=== PATIENT | female | born 1930 | race Caucasian/White ===

== ENCOUNTER 2016-10-21 18:10 | Emergency (ER) | payer MEDICARE, BC ==
[2016-10-21] MEDS ORDERED: methylPREDNISolone SOD SUCCI 125 MG/2 ML VIAL IM ONE (18:54)
[2016-10-21] MEDS ORDERED: diphenhydrAMINE 50 MG CAP PO STA (18:55)
[2016-10-21] MEDS ORDERED: FAMOTIDINE 20 MG TAB PO STA (18:55)
--- NOTE | 2016-10-21 19:00 | ED ---
Allergic Reaction HPI - General Chief complaint: Allergic Reaction Stated complaint: hives,itching Time Seen by Provider: 10/21/16 18:40 Source: patient, RN notes reviewed Mode of arrival: wheelchair Limitations: no limitations - History of Present Illness Initial Comments: Patient is an 86-year-old female presents to the emergency room evaluation of rash. Patient states around noon today she noticed hives rash over bilateral arms, abdomen and lower back. Patient states she is very uncomfortable from itching. Patient states she put topical Benadryl the area with no relief of symptoms. Patient denies any new medications. Patient is states she had her left upper tooth pulled yesterday. Patient states she's had this procedure done before. Patient denies having any ALLERGIC reactions before with medication she was given. Patient denies any new foods. Patient denies any new lotions, body washes, shampoos, body sprays. Patient denies any new plants or pets in the household. Patient denies any shortness of breath. Patient denies chest pain. Patient denies fevers or chills. Patient denies headache or dizziness. - Related Data Previous Rx's Medication Instructions Recorded Famotidine [Pepcid] 20 mg PO DAILY #4 tablet 10/21/16 predniSONE 50 mg PO DAILY #4 tab 10/21/16 Allergies Allergy/AdvReac Type Severity Reaction Status Date / Time Penicillins Allergy Unknown Verified 10/21/16 18:55 Review of Systems ROS Statement: Those systems with pertinent positive or pertinent negative responses have been documented in the HPI. ROS Other: All systems not noted in ROS Statement are negative. Past Medical History Past Medical History: Heart Failure Additional Past Medical History / Comment(s): blood clot filter History of Any Multi-Drug Resistant Organisms: None Reported Past Surgical History: Appendectomy, Cholecystectomy, Hysterectomy Additional Past Surgical History / Comment(s): carpal tunnel Past Psychological History: No Psychological Hx Reported Smoking Status: Never smoker Past Alcohol Use History: None Reported Past Drug Use History: None Reported General Exam - General Exam Comments Initial Comments: Sitting in exam room, no distress. Limitations: no limitations General appearance: alert, in no apparent distress Head exam: Present: atraumatic, normocephalic, normal inspection Eye exam: Present: normal appearance ENT exam: Present: normal exam Neck exam: Present: normal inspection Respiratory exam: Present: normal lung sounds bilaterally. Absent: respiratory distress Cardiovascular Exam: Present: regular rate, normal rhythm, normal heart sounds Extremities exam: Present: normal inspection Back exam: Present: normal inspection Neurological exam: Present: alert, oriented X3, CN II-XII intact, normal gait Psychiatric exam: Present: normal affect, normal mood Skin exam: Present: urticaria (Multiple urticaria over bilateral arms, abdomen and lower back) Course Vital Signs 10/21/16 10/21/16 18:33 20:31 Temperature 97.4 F L 98.0 F Pulse Rate 63 68 Respiratory 20 18 Rate Blood Pressure 104/53 155/69 O2 Sat by Pulse 96 95 Oximetry Medical Decision Making - Medical Decision Making patient is a 86-year-old female presents to the emergency room for evaluation of hives rash. Patient given Solu-Medrol, Benadryl and Pepcid and states that she is beginning to feel better. Will send patient home with prednisone and Pepcid and advised her take Benadryl as needed. Patient states she understands everything that was discussed with her. Return parameters discussed. Case discussed with Dr. Simmons. Disposition Clinical Impression: Urticaria Disposition: HOME SELF-CARE Condition: Good Instructions: Urticaria (ED) Additional Instructions: Begin taking prednisone and Pepcid tomorrow. Take Benadryl every 4-6 hours as needed. Please follow up with primary care provider in 1-2 days. If any new symptom arises or symptoms worsen, return to ER as soon as possible. Prescriptions: Famotidine [Pepcid] 20 mg PO DAILY #4 tablet predniSONE 50 mg PO DAILY #4 tab Referrals: Mary Ramos MD [Primary Care Provider] - 1-2 days Time of Disposition: 20:24
[2016-10-21 20:31] VITALS: BP 155/69; PULSE 68; RESP 18; TEMP 98
== END 2016-10-21 20:31 | disposition home or self-care (01) ==
LOC: EC 18:10
DX: L50.9 Urticaria, unspecified (principal); Z88.0 Allergy status to penicillin
CPT/HCPCS: 99283; 96372; J2930

== ENCOUNTER 2016-10-22 04:19 | Emergency (ER) | payer MEDICARE, BC ==
[2016-10-22 04:26] VITALS: RESP 18
[2016-10-22] MEDS ORDERED: methylPREDNISolone SOD SUCCI 125 MG/2 ML VIAL IM ONE (04:55)
[2016-10-22] MEDS ORDERED: LORATADINE 10 MG TAB PO STA (04:55)
--- NOTE | 2016-10-22 04:59 | ED ---
Skin/Abscess/FB HPI - General Chief complaint: Skin/Abscess/Foreign Body Stated complaint: Hives/Skin Rash Time Seen by Provider: 10/22/16 04:29 Source: patient Mode of arrival: wheelchair Limitations: no limitations - History of Present Illness Initial comments: She was seen earlier in ER for an ALLERGIC reaction she had a hives and it was very itchy she was giving her prednisone and Pepcid prescription of pharmacy closed and she was unable to get her prescription filled and now she feels hives are back not as bad as they were before but she felt that there were quite itchy. She denies any shortness of breath she denies any swelling of the tongue or tightening of the throat. - Related Data Previous Rx's Medication Instructions Recorded Famotidine [Pepcid] 20 mg PO DAILY #4 tablet 10/21/16 predniSONE 50 mg PO DAILY #4 tab 10/21/16 Allergies Allergy/AdvReac Type Severity Reaction Status Date / Time Penicillins Allergy Unknown Verified 10/22/16 04:26 Review of Systems ROS Statement: Those systems with pertinent positive or pertinent negative responses have been documented in the HPI. ROS Other: All systems not noted in ROS Statement are negative. Past Medical History Past Medical History: Heart Failure Additional Past Medical History / Comment(s): blood clot filter History of Any Multi-Drug Resistant Organisms: None Reported Past Surgical History: Appendectomy, Cholecystectomy, Hysterectomy Additional Past Surgical History / Comment(s): carpal tunnel Past Psychological History: No Psychological Hx Reported Smoking Status: Never smoker Past Alcohol Use History: None Reported Past Drug Use History: None Reported General Exam - General Exam Comments Initial Comments: General: The patient is awake and alert, in no distress, and does not appear acutely ill. GCS is 15 Skin: Skin is warm and dry and no rashes or lesions are noted. Some scattered hives on the right kidney some in the upper back some on the left upper extremity Eye: Pupils are equal, round and reactive to light, extra-ocular movements are intact; there is normal conjunctiva bilaterally. Ears, nose, mouth and throat: There are moist mucous membranes and no oral lesions. Neck: The neck is supple, there is no tenderness Cardiovascular: There is a regular rate and rhythm. No murmur, rub or gallop is appreciated. Respiratory: To auscultation bilateral, no wheezing no rhonchi no distress respiratory shaw noticed Gastrointestinal: Soft, non-distended, non-tender abdomen without masses or organomegaly noted. There is no rebound or guarding present. Bowel sounds are unremarkable. Back: There is no tenderness to palpation in the midline. There is no obvious deformity. Musculoskeletal: Normal ROM, no tenderness, There is no pedal edema. There is no calf tenderness or swelling. No cords were appreciated. Neurological: CN II-XII intact, Cranial nerves III through XII are intact. There are no obvious motor or sensory deficits. Coordination appears grossly intact. Speech is normal. Psychiatric: Cooperative, appropriate mood & affect, normal judgment. Limitations: no limitations Course Vital Signs 10/22/16 04:23 Temperature 96.9 F L Pulse Rate 62 Respiratory 18 Rate Blood Pressure 122/58 O2 Sat by Pulse 94 L Oximetry - Reevaluation(s) Reevaluation #1: 10/22/16 04:58 She be given a one shot of Solu-Medrol 125 intramuscular now and Claritin 10 mg by mouth she has a prescription for Pepcid 20 mg twice daily as well as prednisone 50 mg 1 tablet daily for next 5 days, she was educated about avoiding the water excess of soap for use in the body wash and return to the ER if she has the shortness of breath or tongue swelling or lip swelling Disposition Clinical Impression: Allergic reaction Disposition: HOME SELF-CARE Condition: Fair Instructions: Allergies (ED) Referrals: Mary Ramos MD [Primary Care Provider] - 1-2 days
[2016-10-22 05:23] VITALS: BP 133/71; PULSE 69; TEMP 98
== END 2016-10-22 05:23 | disposition home or self-care (01) ==
LOC: EC 04:19
DX: T78.40XA Allergy, unspecified, initial encounter (principal); Z88.0 Allergy status to penicillin
CPT/HCPCS: 99283; 96372; J2930

== ENCOUNTER → 2016-11-05 | Outpatient (CLI) | payer MEDICARE, BC ==
[2016-11-05 09:35] LABS: Anion Gap 10 mmol/L; Blood Urea Nitrogen 31 mg/dL (7-17); Calcium 8.8 mg/dL (8.4-10.2); Carbon Dioxide 26 mmol/L (22-30); Chloride 108 mmol/L (98-107); Glucose 107 mg/dL (74-99); Non-African American GFR(MDRD) 57 (>60 ml/min/1.73 sqM); Potassium 3.7 mmol/L (3.5-5.1); Sodium 144 mmol/L (137-145)
[2016-11-05 12:56] LABS: Hemoglobin A1C 6.7 % (4.2-6.1)
== END | disposition home or self-care (01) ==
LOC: LABWHC1 08:43
PROVIDERS: ATTEND Internal Medicine
DX: R73.9 Hyperglycemia, unspecified (principal)
CPT/HCPCS: 36415; 80048; 83036

== ENCOUNTER 2016-11-16 12:04 | Emergency (ER) | payer MEDICARE, BC ==
--- NOTE | 2016-11-16 13:10 | ED ---
Extremity Problem HPI - General Chief complaint: Extremity Problem,Nontraumatic Stated complaint: Swollen Legs and Feet Time Seen by Provider: 11/16/16 12:21 Source: patient, family Mode of arrival: wheelchair Limitations: no limitations - History of Present Illness Initial comments: This is an 86-year-old female to history of DVT and CHF who presents emergency department for worsening lower extremity swelling for the last week. She states that she was seen here approximately 3 or 4 weeks ago for a rash. She was told that it was hives and was placed on steroids. She states that she's been on these until a week ago when she stopped taking them. She states that since then she's been noticing more swelling in her lower extremities. It seems to get worse at nighttime and better throughout the day as she is moving around. She did see her doctor recently who stated that he was not concerned. The patient is on Coumadin and has been taking her medications. She states that she also does have some shortness of breath with exertion however this is chronic. No chest pain or palpitations. No lightheadedness. No other complaints. - Related Data Home Medications Medication Instructions Recorded Confirmed Diazepam [Valium] 5 mg PO BID 11/16/16 11/16/16 Levothyroxine Sodium [Synthroid] 137 mcg PO DAILY 11/16/16 11/16/16 Potassium Chloride 8 meq PO DAILY 11/16/16 11/16/16 Ranitidine HCl [Zantac] 150 mg PO BID 11/16/16 11/16/16 Triamterene/Hydrochlorothiazid 1 tab PO DAILY 11/16/16 11/16/16 [Triamterene-Hctz 37.5-25 mg Tb] Warfarin [Coumadin] 3 mg PO DAILY 11/16/16 11/16/16 Allergies Allergy/AdvReac Type Severity Reaction Status Date / Time Penicillins Allergy Unknown Verified 11/16/16 12:27 Review of Systems ROS Statement: Those systems with pertinent positive or pertinent negative responses have been documented in the HPI. ROS Other: All systems not noted in ROS Statement are negative. Past Medical History Past Medical History: Heart Failure, Thyroid Disorder Additional Past Medical History / Comment(s): blood clot filter History of Any Multi-Drug Resistant Organisms: None Reported Past Surgical History: Appendectomy, Cholecystectomy, Hysterectomy Additional Past Surgical History / Comment(s): carpal tunnel Past Psychological History: No Psychological Hx Reported Smoking Status: Never smoker Past Alcohol Use History: None Reported Past Drug Use History: None Reported General Exam - General Exam Comments Initial Comments: Constitutional: Awake alert Appears comfortable Head: Normocephalic atraumatic Eyes: no conjunctival injection No scleral icterus EOMI Neck: No JVD Supple Heart: Regular rate rhythm normal S1-S2 no murmurs Lungs: Clear to auscultation bilaterally No wheezing No rales Abdomen: Soft nondistended nontender Extremities: Bilateral lower extremity edema up to the knee right greater than left DP pulses intact Radial pulses intact Neuro: A&Ox3 No focal neurologic deficits Psych: Appropriate mood and affect Limitations: no limitations Course Vital Signs 11/16/16 11/16/16 11/16/16 12:08 13:11 14:00 Temperature 97.1 F L Pulse Rate 80 57 L 55 L Respiratory 20 18 18 Rate Blood Pressure 141/71 123/60 120/56 O2 Sat by Pulse 97 97 95 Oximetry 11/16/16 15:00 Temperature Pulse Rate 60 Respiratory 18 Rate Blood Pressure 127/61 O2 Sat by Pulse 96 Oximetry - Reevaluation(s) Reevaluation #1: 11/16/16 14:44 EKG showing a normal sinus rhythm with a rate of 80. There is evidence for a left bundle-branch block. No abnormal ST segment changes or T-wave inversions. QTC is 530 area other intervals are normal ectopy. Medical Decision Making - Medical Decision Making This is an 86-year-old female presents emergency department for bilateral lower extremity swelling. Dopplers were negative for DVT. There is no evidence for acute renal failure or CHF exacerbation. The patient was instructed to get compression stockings and follow up with her doctor for further evaluation. She can return if she has worsening or changing symptoms. All questions were answered. - Lab Data Result diagrams: 11/16/16 12:51 11/16/16 12:51 Lab Results 11/16/16 11/16/16 11/16/16 Range/Units 12:51 12:51 12:51 WBC 8.6 (3.8-10.6) k/uL RBC 5.03 (3.80-5.40) m/uL Hgb 14.7 (11.4-16.0) gm/dL Hct 44.1 (34.0-46.0) % MCV 87.7 (80.0-100.0) fL MCH 29.2 (25.0-35.0) pg MCHC 33.3 (31.0-37.0) g/dL RDW 15.7 H (11.5-15.5) % Plt Count 259 (150-450) k/uL Neutrophils % 67 % Lymphocytes % 19 % Monocytes % 5 % Eosinophils % 7 % Basophils % 1 % Neutrophils # 5.8 (1.3-7.7) k/uL Lymphocytes # 1.6 (1.0-4.8) k/uL Monocytes # 0.4 (0-1.0) k/uL Eosinophils # 0.6 (0-0.7) k/uL Basophils # 0.1 (0-0.2) k/uL PT 32.6 H (9.0-12.0) sec INR 3.4 (<1.1) Sodium 142 (137-145) mmol/L Potassium 4.5 (3.5-5.1) mmol/L Chloride 102 (98-107) mmol/L Carbon Dioxide 28 (22-30) mmol/L Anion Gap 12 mmol/L BUN 21 H (7-17) mg/dL Creatinine 1.27 H (0.52-1.04) mg/dL Est GFR (MDRD) Af Amer 48 (>60 ml/min/1.73 sqM) Est GFR (MDRD) Non-Af 40 (>60 ml/min/1.73 sqM) Glucose 98 (74-99) mg/dL Calcium 9.3 (8.4-10.2) mg/dL NT-Pro-B Natriuret Pep pg/mL 11/16/16 Range/Units 12:51 WBC (3.8-10.6) k/uL RBC (3.80-5.40) m/uL Hgb (11.4-16.0) gm/dL Hct (34.0-46.0) % MCV (80.0-100.0) fL MCH (25.0-35.0) pg MCHC (31.0-37.0) g/dL RDW (11.5-15.5) % Plt Count (150-450) k/uL Neutrophils % % Lymphocytes % % Monocytes % % Eosinophils % % Basophils % % Neutrophils # (1.3-7.7) k/uL Lymphocytes # (1.0-4.8) k/uL Monocytes # (0-1.0) k/uL Eosinophils # (0-0.7) k/uL Basophils # (0-0.2) k/uL PT (9.0-12.0) sec INR (<1.1) Sodium (137-145) mmol/L Potassium (3.5-5.1) mmol/L Chloride (98-107) mmol/L Carbon Dioxide (22-30) mmol/L Anion Gap mmol/L BUN (7-17) mg/dL Creatinine (0.52-1.04) mg/dL Est GFR (MDRD) Af Amer (>60 ml/min/1.73 sqM) Est GFR (MDRD) Non-Af (>60 ml/min/1.73 sqM) Glucose (74-99) mg/dL Calcium (8.4-10.2) mg/dL NT-Pro-B Natriuret Pep 74 pg/mL Disposition Clinical Impression: Dependent edema Disposition: HOME SELF-CARE Condition: Stable Instructions: Leg Edema (ED) Additional Instructions: Please apple picker compression stockings from her pharmacy to follow-up with your doctor in the next week. Referrals: Rj Vo MD [Primary Care Provider] - 1-2 days
[2016-11-16 13:32] LABS: Basophils # (A) 0.1 k/uL (0-0.2); Basophils % (A) 1 %; CHCM 33.3; Eosinophils # (A) 0.6 k/uL (0-0.7); Eosinophils % (A) 7 %; HCT 44.1 % (34.0-46.0); HDW 2.84; HGB 14.7 gm/dL (11.4-16.0); Luc # (Auto) 0.15; Luc % (Auto) 2; Lymphocytes # (A) 1.6 k/uL (1.0-4.8); Lymphocytes % (A) 19 %; MCH 29.2 pg (25.0-35.0); MCHC 33.3 g/dL (31.0-37.0); MCV 87.7 fL (80.0-100.0); Mean Platelet Volume 7.2; Monocytes # (A) 0.4 k/uL (0-1.0); Monocytes % (A) 5 %; Neutrophils # (A) 5.8 k/uL (1.3-7.7); Neutrophils % (A) 67 %; RBC 5.03 m/uL (3.80-5.40); RDW 15.7 % (11.5-15.5); WBC 8.6 k/uL (3.8-10.6); WBC (Perox) 8.19
[2016-11-16 13:36] VITALS: RESP 18
[2016-11-16 13:38] LABS: INR 3.4 (<1.1); Prothrombin Time 32.6 sec (9.0-12.0)
[2016-11-16 13:51] LABS: Calcium 9.3 mg/dL (8.4-10.2); Potassium 4.5 mmol/L (3.5-5.1)
--- NOTE | 2016-11-16 14:44 | US ---
EXAMINATION TYPE: US venous doppler duplex LE DATE OF EXAM: 11/16/2016 12:48 PM COMPARISON: US 2012 CLINICAL HISTORY: A 6-year-old female Pain, Bilateral leg swelling. 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 SIDE PERFORMED: Bilateral TECHNIQUE: The lower extremity deep venous system is examined utilizing real time linear array sonog paris with graded compression, doppler sonography and color-flow sonography. FINDINGS: VESSELS IMAGED: External Iliac Vein (EIV) Common Femoral Vein Deep Femoral Vein Greater Saphenous Vein * Femoral Vein Popliteal Vein Small Saphenous Vein * (* superficial vessels) Right Leg: Negative for DVT Left Leg: Negative for DVT IMPRESSION: No evidence for DVT within the bilateral lower extremities imaged from the groin to the knees.
--- NOTE | 2016-11-16 15:05 | XR ---
EXAMINATION TYPE: XR chest 2V DATE OF EXAM: 11/16/2016 COMPARISON: None HISTORY: 86-year-old female with lower leg edema and pain TECHNIQUE: AP and lateral views FINDINGS: The heart is moderately to mildly enlarged. Mild elongation of the thoracic aorta. Pulmonary vasculat ure and interstitium appears prominent. No consolidation or pleural effusion. IMPRESSION: Correlate for mild CHF. No brittany pulmonary edema.
[2016-11-16 15:21] VITALS: BP 139/66; PULSE 72; TEMP 97
== END 2016-11-16 15:33 | disposition home or self-care (01) ==
LOC: EC 12:04
DX: R60.0 Localized edema (principal); I50.9 Heart failure, unspecified; E07.9 Disorder of thyroid, unspecified; Z86.718 Personal history of other venous thrombosis and embolism; Z79.01 Long term (current) use of anticoagulants; Z79.899 Other long term (current) drug therapy; Z88.0 Allergy status to penicillin
CPT/HCPCS: 36415; 71020; 80048; 83880; 85025; 85610; 93005; 93970; 99284

== ENCOUNTER 2016-11-23 14:02 | Inpatient (IN) | payer MEDICARE, BC ==
--- NOTE | 2016-11-23 16:46 | XR ---
EXAMINATION TYPE: XR chest 2V DATE OF EXAM: 11/23/2016 COMPARISON: Chest x-ray from one week ago. HISTORY: Dyspnea and edema. TECHNIQUE: Frontal and lateral views of the chest are obtained. FINDINGS: There is no focal air space opacity, pleural effusion, or pneumothorax seen. The cardiac silhouette size is stable and mildly enlarged with perhaps mild central vascular congestion. The os seous structures are intact. IMPRESSION: Cardiomegaly with perhaps mild central vascular congestion redemonstrated. No significan t change from prior study. Correlate for mild CHF.
[2016-11-23 17:03] LABS: Basophils # (A) 0.1 k/uL (0-0.2); Basophils % (A) 1 %; CH 28.6; CHCM 32.7; Eosinophils # (A) 0.4 k/uL (0-0.7); Eosinophils % (A) 5 %; HCT 47.8 % (34.0-46.0); HDW 3.06; HGB 15.6 gm/dL (11.4-16.0); Luc # (Auto) 0.14; Luc % (Auto) 2; Lymphocytes # (A) 1.4 k/uL (1.0-4.8); Lymphocytes % (A) 15 %; MCH 28.7 pg (25.0-35.0); MCHC 32.7 g/dL (31.0-37.0); MCV 87.8 fL (80.0-100.0); Mean Platelet Volume 7.3; Monocytes # (A) 0.4 k/uL (0-1.0); Monocytes % (A) 4 %; Neutrophils % (A) 74 %; RBC 5.44 m/uL (3.80-5.40); RDW 15.7 % (11.5-15.5); WBC 9.6 k/uL (3.8-10.6); WBC (Perox) 10.07
[2016-11-23 17:18] LABS: INR 4.9 (<1.1); Partial Thromboplastin Time 48.8 sec (22.0-30.0); Prothrombin Time 48.7 sec (9.0-12.0)
[2016-11-23 17:19] LABS: Calcium 8.9 mg/dL (8.4-10.2); Potassium 3.2 mmol/L (3.5-5.1); Total Bilirubin 0.7 mg/dL (0.2-1.3)
[2016-11-23] MEDS ORDERED: POTASSIUM CHLORIDE ER 20 MEQ TAB.ER PO STA ×2 (17:22→20:21)
[2016-11-23 17:26] LABS: Creatine Kinase 56 U/L (30-135)
[2016-11-23 17:39] LABS: Creatine Kinase MB 0.7 ng/mL (0.0-2.4); Troponin I <0.012 ng/mL (0.000-0.034)
[2016-11-23] MEDS ORDERED: ASPIRIN 325 MG TAB PO STA (18:05)
[2016-11-23] MEDS ORDERED: FUROSEMIDE 10 MG/ML 2 ML VIAL IV STA (18:05)
[2016-11-23] MEDS ORDERED: NALOXONE 0.4 MG/ML 1 ML VIAL IV PRN (18:06)
[2016-11-23] MEDS ORDERED: ACETAMINOPHEN TAB 325 MG TAB PO PRN (18:13)
[2016-11-23] MEDS ORDERED: ONDANSETRON 4 MG/2 ML VIAL IVP PRN (18:13)
--- NOTE | 2016-11-23 18:33 | ED ---
General Adult HPI - General Chief complaint: Shortness of Breath Stated complaint: Feet/Legs swollen Time Seen by Provider: 11/23/16 15:13 Source: patient, family, RN notes reviewed Mode of arrival: wheelchair Limitations: no limitations - History of Present Illness Initial comments: Sexual female with past medical history of CHF, CAD presenting with 2 months of worsening shortness of breath. Patient states that last night she had worsening dyspnea. She denies cough denies fever. Patient had an episode of chest pain which is resolved. Chest pain was described as a heaviness. Patient is currently on a diuretic, which she states is now Lasix. Patient is also taking Coumadin. Denies nausea vomiting diarrhea. Denies abdominal pain. - Related Data Home Medications Medication Instructions Recorded Confirmed Diazepam [Valium] 5 mg PO BID PRN 11/16/16 11/23/16 Levothyroxine Sodium [Synthroid] 137 mcg PO DAILY 11/16/16 11/23/16 Potassium Chloride 8 meq PO BID 11/16/16 11/23/16 Ranitidine HCl [Zantac] 150 mg PO BID 11/16/16 11/23/16 Warfarin [Coumadin] 3 mg PO DAILY 11/16/16 11/23/16 Cholecalciferol [Vitamin D3] 1,000 unit PO DAILY 11/23/16 11/23/16 Montelukast [Singulair] 10 mg PO HS 11/23/16 11/23/16 Triamterene-Hctz 37.5-25Mg 1 cap PO DAILY 11/23/16 11/23/16 [Dyazide 37.5-25 Capsule] Allergies Allergy/AdvReac Type Severity Reaction Status Date / Time nitroglycerin AdvReac Unknown Verified 11/23/16 15:48 [From Nitrostat] Penicillins AdvReac Nausea & Verified 11/23/16 15:48 Vomiting Review of Systems ROS Statement: Those systems with pertinent positive or pertinent negative responses have been documented in the HPI. ROS Other: All systems not noted in ROS Statement are negative. Past Medical History Past Medical History: Heart Failure, Thyroid Disorder Additional Past Medical History / Comment(s): blood clot filter History of Any Multi-Drug Resistant Organisms: None Reported Past Surgical History: Appendectomy, Cholecystectomy, Hysterectomy Additional Past Surgical History / Comment(s): carpal tunnel Past Psychological History: No Psychological Hx Reported Smoking Status: Never smoker Past Alcohol Use History: None Reported Past Drug Use History: None Reported General Exam Limitations: no limitations General appearance: alert, in no apparent distress Head exam: Present: atraumatic, normocephalic Eye exam: Present: normal appearance, PERRL ENT exam: Present: normal exam Neck exam: Present: normal inspection Respiratory exam: Present: rales. Absent: respiratory distress Cardiovascular Exam: Present: regular rate, normal rhythm GI/Abdominal exam: Present: soft. Absent: distended, tenderness Extremities exam: Present: pedal edema Neurological exam: Present: alert, oriented X3 Psychiatric exam: Present: normal affect, normal mood Skin exam: Present: warm, dry Course Vital Signs 11/23/16 11/23/16 11/23/16 14:35 14:57 16:43 Temperature 98.3 F Pulse Rate 96 90 83 Respiratory 24 22 20 Rate Blood Pressure 160/77 154/78 125/63 O2 Sat by Pulse 97 95 96 Oximetry 11/23/16 17:58 Temperature Pulse Rate 83 Respiratory 18 Rate Blood Pressure 124/67 O2 Sat by Pulse 98 Oximetry EKG Findings - EKG Comments: EKG Findings:: EKG shows normal sinus rhythm with an incomplete left bundle branch block, ventricular rate 92, MT interval is 160, QTC 42, QRS duration 116 , there is no ST segment elevation or depression, no T-wave abnormalities. No signs of ischemia. Medical Decision Making - Medical Decision Making 86 yo female presenting with worsening dyspnea over 2 months. Patient had an episode of chest pain which was resolved at the time of evaluation. Patient is found to have pulmonary edema on chest x-ray. Exam consistent with worsening heart failure, there is bilateral 1+ pedal edema. Patient has bilateral Rales. Patient will be admitted for acute congestive heart failure exacerbation. - Lab Data Result diagrams: 11/23/16 16:43 11/23/16 16:43 Lab Results 11/23/16 11/23/16 11/23/16 Range/Units 16:43 16:43 16:43 WBC 9.6 (3.8-10.6) k/uL RBC 5.44 H (3.80-5.40) m/uL Hgb 15.6 (11.4-16.0) gm/dL Hct 47.8 H (34.0-46.0) % MCV 87.8 (80.0-100.0) fL MCH 28.7 (25.0-35.0) pg MCHC 32.7 (31.0-37.0) g/dL RDW 15.7 H (11.5-15.5) % Plt Count 276 (150-450) k/uL Neutrophils % 74 % Lymphocytes % 15 % Monocytes % 4 % Eosinophils % 5 % Basophils % 1 % Neutrophils # 7.0 (1.3-7.7) k/uL Lymphocytes # 1.4 (1.0-4.8) k/uL Monocytes # 0.4 (0-1.0) k/uL Eosinophils # 0.4 (0-0.7) k/uL Basophils # 0.1 (0-0.2) k/uL PT 48.7 H (9.0-12.0) sec INR 4.9 (<1.1) APTT 48.8 H (22.0-30.0) sec Sodium 140 (137-145) mmol/L Potassium 3.2 L (3.5-5.1) mmol/L Chloride 100 (98-107) mmol/L Carbon Dioxide 28 (22-30) mmol/L Anion Gap 12 mmol/L BUN 22 H (7-17) mg/dL Creatinine 1.11 H (0.52-1.04) mg/dL Est GFR (MDRD) Af Amer 56 (>60 ml/min/1.73 sqM) Est GFR (MDRD) Non-Af 47 (>60 ml/min/1.73 sqM) Glucose 110 H (74-99) mg/dL Plasma Lactic Acid Stiven (0.7-2.0) mmol/L Calcium 8.9 (8.4-10.2) mg/dL Total Bilirubin 0.7 (0.2-1.3) mg/dL AST 25 (14-36) U/L ALT 28 (9-52) U/L Alkaline Phosphatase 102 (38-126) U/L Total Creatine Kinase (30-135) U/L CK-MB (CK-2) (0.0-2.4) ng/mL CK-MB (CK-2) Rel Index Troponin I (0.000-0.034) ng/mL NT-Pro-B Natriuret Pep pg/mL Total Protein 7.0 (6.3-8.2) g/dL Albumin 4.1 (3.5-5.0) g/dL 11/23/16 11/23/16 11/23/16 Range/Units 16:43 16:43 16:43 WBC (3.8-10.6) k/uL RBC (3.80-5.40) m/uL Hgb (11.4-16.0) gm/dL Hct (34.0-46.0) % MCV (80.0-100.0) fL MCH (25.0-35.0) pg MCHC (31.0-37.0) g/dL RDW (11.5-15.5) % Plt Count (150-450) k/uL Neutrophils % % Lymphocytes % % Monocytes % % Eosinophils % % Basophils % % Neutrophils # (1.3-7.7) k/uL Lymphocytes # (1.0-4.8) k/uL Monocytes # (0-1.0) k/uL Eosinophils # (0-0.7) k/uL Basophils # (0-0.2) k/uL PT (9.0-12.0) sec INR (<1.1) APTT (22.0-30.0) sec Sodium (137-145) mmol/L Potassium (3.5-5.1) mmol/L Chloride (98-107) mmol/L Carbon Dioxide (22-30) mmol/L Anion Gap mmol/L BUN (7-17) mg/dL Creatinine (0.52-1.04) mg/dL Est GFR (MDRD) Af Amer (>60 ml/min/1.73 sqM) Est GFR (MDRD) Non-Af (>60 ml/min/1.73 sqM) Glucose (74-99) mg/dL Plasma Lactic Acid Stiven 1.7 (0.7-2.0) mmol/L Calcium (8.4-10.2) mg/dL Total Bilirubin (0.2-1.3) mg/dL AST (14-36) U/L ALT (9-52) U/L Alkaline Phosphatase (38-126) U/L Total Creatine Kinase 56 (30-135) U/L CK-MB (CK-2) 0.7 (0.0-2.4) ng/mL CK-MB (CK-2) Rel Index 1.3 Troponin I <0.012 (0.000-0.034) ng/mL NT-Pro-B Natriuret Pep 76 pg/mL Total Protein (6.3-8.2) g/dL Albumin (3.5-5.0) g/dL Disposition Clinical Impression: Congestive heart failure Disposition: ADMITTED IP TO THIS [facility] Condition: Stable Referrals: Rj Vo MD [Primary Care Provider] - 1-2 days Decision to Admit Reason: Admit from EC Decision Date: 11/23/16 Decision Time: 18:35
[2016-11-23] MEDS ORDERED: DIAZEPAM 5 MG TAB PO PRN (20:01)
[2016-11-23] MEDS ORDERED: Potassium Replacement Protocol 1 EACH MISC MISCELLANE PRN (20:21)
[2016-11-23] MEDS ORDERED: FUROSEMIDE 10 MG/ML 4 ML VIAL IV STA (20:22)
--- NOTE | 2016-11-23 20:59 | P.HPIM ---
<Tri Vazquez A - Last Filed: 11/23/16 20:39> History of Present Illness H&P Date: 11/23/16 Chief Complaint: Increasing shortness of breath This is a very pleasant 86-year-old female with a past medical history of CHF, CAD who presented to the emergency department with 2 months of worsening shortness of breath. Patient states the worst of it was last night with worsening dyspnea. Patient states she is unable to lie flat in the bed, sleeps sitting up in a chair. Denies cough and fever. States she had an episode of chest pain which is now resolved, chest pain described as heaviness. Patient's history is significant for DVT with a placement of [place] filter, unknown date. Patient also is chronically on Coumadin for said DVTs . Review of Systems GEN.: [None] EYES: [None] HEENT: [None] NECK: [None] RESPIRATORY: [Shortness of breath] CARDIOVASCULAR: [Chest heaviness, edema to bilateral feet and legs] GASTROINTESTINAL: [Occasional bleeding from the rectum] GENITOURINARY: [None] MUSCULOSKELETAL: [] LYMPHATICS: [None] HEMATOLOGICAL: [None] PSYCHIATRY: [None] NEUROLOGICAL: [Periodic numbness to left side of face and left arm.] Past Medical History Past Medical History: Heart Failure, Thyroid Disorder Additional Past Medical History / Comment(s): blood clot filter History of Any Multi-Drug Resistant Organisms: None Reported Past Surgical History: Appendectomy, Cholecystectomy, Hysterectomy Additional Past Surgical History / Comment(s): carpal tunnel Past Psychological History: No Psychological Hx Reported Smoking Status: Never smoker Past Alcohol Use History: None Reported Past Drug Use History: None Reported Medications and Allergies Home Medications Medication Instructions Recorded Confirmed Type Diazepam [Valium] 5 mg PO BID PRN 11/16/16 11/23/16 History Levothyroxine Sodium [Synthroid] 137 mcg PO DAILY 11/16/16 11/23/16 History Potassium Chloride 8 meq PO BID 11/16/16 11/23/16 History Ranitidine HCl [Zantac] 150 mg PO BID 11/16/16 11/23/16 History Warfarin [Coumadin] 3 mg PO DAILY 11/16/16 11/23/16 History Cholecalciferol [Vitamin D3] 1,000 unit PO DAILY 11/23/16 11/23/16 History Montelukast [Singulair] 10 mg PO HS 11/23/16 11/23/16 History Triamterene-Hctz 37.5-25Mg 1 cap PO DAILY 11/23/16 11/23/16 History [Dyazide 37.5-25 Capsule] Allergies Allergy/AdvReac Type Severity Reaction Status Date / Time nitroglycerin AdvReac Unknown Verified 11/23/16 15:48 [From Nitrostat] Penicillins AdvReac Nausea & Verified 11/23/16 15:48 Vomiting Physical Exam Vitals: Vital Signs Temp Pulse Resp BP Pulse Ox 11/23/16 18:55 96 18 146/71 97 11/23/16 17:58 83 18 124/67 98 11/23/16 16:43 83 20 125/63 96 11/23/16 14:57 90 22 154/78 95 11/23/16 14:35 98.3 F 96 24 160/77 97 Intake and Output 11/23/16 11/23/16 11/23/16 06:59 14:59 22:59 Other: Weight 93.44 kg Patient Weight 11/24/16 06:59 Weight 93.44 kg VITAL SIGNS: [Temperature 98.3, pulse 96, respirations 24, blood pressure 160/77 , oxygen saturation 97% on room air. BMI noted] GENERAL: [Average built, sitting up, mildly anxious]. EYES: [Pupils equal. Conjunctiva yury]l. HEENT: [External appearance of nose and ears normal, oral cavity grossly normal] . NECK: [JVD raised; masses not palpable]. HEART: [First and second heart sounds are normal; moderate pedal and lower extremity edema]. LUNGS:[ Respiratory rate increased; crackles bilaterally]. ABDOMEN: [Soft, nontender, liver spleen not palpable, no masses palpable]. LYMPHATICS: [No lymph nodes palpable in the axilla and neck]. PSYCH: [Alert and oriented x3; mood and affect mildly anxious]l. NEUROLOGICAL: [Cranial nerves grossly intact; no facial asymmetry, power and sensation grossly intact]. Results CBC & Chem 7: 11/23/16 16:43 11/23/16 16:43 Labs: Abnormal Lab Results - Last 24 Hours (Table) 11/23/16 11/23/16 11/23/16 Range/Units 16:43 16:43 16:43 RBC 5.44 H (3.80-5.40) m/uL Hct 47.8 H (34.0-46.0) % RDW 15.7 H (11.5-15.5) % PT 48.7 H (9.0-12.0) sec APTT 48.8 H (22.0-30.0) sec Potassium 3.2 L (3.5-5.1) mmol/L BUN 22 H (7-17) mg/dL Creatinine 1.11 H (0.52-1.04) mg/dL Glucose 110 H (74-99) mg/dL Assessment and Plan Plan: ASSESSMENT: -Acute exacerbation of congestive heart failure -Hypothyroidism -Anxiety otherwise unspecified -History of DVT with [place] filter placement, chronically on Coumadin PLAN: Home medications reordered, cardiology consulted, Lasix received in the emergency department, potassium supplemented. Plan of care discussed with the patient, questions answered. We'll continue to follow closely. FRENCH EDGE OPERATOR statement: Patient was seen and examined by nurse practitioner Tri Vazquez in all elements of the case discussed with attending Dr. Abernathy. <Geoffrey Abernathy - Last Filed: 11/24/16 15:47> Physical Exam Vitals: Vital Signs Temp Pulse Pulse Resp BP BP Pulse Ox 11/24/16 12:00 98.2 F 85 18 132/67 96 11/24/16 08:00 97.9 F 88 18 129/60 94 L 11/24/16 04:00 97.3 F L 71 18 108/60 94 L 11/24/16 00:00 90 18 117/71 96 11/23/16 20:00 97.8 F 93 20 122/79 96 11/23/16 18:55 96 18 146/71 97 11/23/16 17:58 83 18 124/67 98 11/23/16 16:43 83 20 125/63 96 Intake and Output 11/24/16 11/24/16 11/24/16 06:59 14:59 22:59 Intake Total 605 Output Total 600 200 Balance -600 405 Intake: Oral 605 Tube Feeding 0 Blood Product 0 Output: Urine 600 200 Other: Voiding Method Toilet Weight 91.2 kg Results CBC & Chem 7: 11/24/16 04:12 11/24/16 11:32 Labs: Abnormal Lab Results - Last 24 Hours (Table) 11/23/16 11/23/16 11/23/16 Range/Units 16:43 16:43 16:43 RBC 5.44 H (3.80-5.40) m/uL Hct 47.8 H (34.0-46.0) % RDW 15.7 H (11.5-15.5) % PT 48.7 H (9.0-12.0) sec APTT 48.8 H (22.0-30.0) sec Potassium 3.2 L (3.5-5.1) mmol/L BUN 22 H (7-17) mg/dL Creatinine 1.11 H (0.52-1.04) mg/dL Glucose 110 H (74-99) mg/dL 11/24/16 11/24/16 11/24/16 Range/Units 04:12 04:12 04:12 RBC (3.80-5.40) m/uL Hct 46.2 H (34.0-46.0) % RDW 16.0 H (11.5-15.5) % PT 42.3 H (9.0-12.0) sec APTT (22.0-30.0) sec Potassium 3.0 L* (3.5-5.1) mmol/L BUN 24 H (7-17) mg/dL Creatinine 1.20 H (0.52-1.04) mg/dL Glucose 136 H (74-99) mg/dL 11/24/16 Range/Units 11:32 RBC (3.80-5.40) m/uL Hct (34.0-46.0) % RDW (11.5-15.5) % PT (9.0-12.0) sec APTT (22.0-30.0) sec Potassium 3.4 L (3.5-5.1) mmol/L BUN (7-17) mg/dL Creatinine (0.52-1.04) mg/dL Glucose (74-99) mg/dL Assessment and Plan Plan: Attending note. Date of service-11/23/2016 This patient was seen and examined by me 11/23/2016. I reviewed the note of my nurse practitioner, Ms. Vazquez. Discussed with her, additional findings as below. This is a very pleasant 86 year patient was chronic stable medical conditions include congestive heart failure, hypothyroid, [place] filter, rheumatoid arthritis. Patient uses a cane/walker to get up out of the house. Patient been told to drink a lot of water and she drinks thank you water all the time presents with increasing lower extremity edema which she's had most of the time some shortness of breath. Patient sits and sleeps on a chair most of the time. Admitted for the same. Denies any cough and no chest pain. Significant past medical history: Congestive heart failure, hypothyroid, chronic DVT PE, rheumatoid arthritis, K dysfunction. On examination, Temperature 98.3, pulse 96, respiration 24, blood pressure was sitting is 77, pulse of 97% room air JVD not raised, lungs decreased breath sounds, cardiovascular first seconds are normal Lower extremity bilateral edema Investigations: White count 9.6, hemoglobin 15.6, potassium 3.2, BUN/creatinine 22, creatinine 1.11. BNP 76 Chest x-ray: Cardiomegaly, no obvious venous prominence, reviewed by me Assessment: -Acute bilateral lower chronic lower extremity venous insufficiency, secondary to chronic DVT, and excessive fluid intake, doubt congestive heart failure exacerbation. 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 Dom wrap will be useful lower extremity. We'll consult physical therapy. Care was discussed with extremely pleasant lady
[2016-11-23] MEDS: FUROSEMIDE 10 MG/ML 2 ML VIAL IV SCH (21:23)
[2016-11-23] MEDS: POTASSIUM CHLORIDE ER 20 MEQ TAB.ER PO SCH (21:23)
[2016-11-23] MEDS: MONTELUKAST 10 MG TAB PO SCH ×2 (21:24→21:29)
[2016-11-23] MEDS: FAMOTIDINE 20 MG TAB PO SCH ×2 (21:24→21:29)
[2016-11-24 04:41] LABS: Basophils # (A) 0.1 k/uL (0-0.2); Basophils % (A) 1 %; CHCM 33.2; Eosinophils # (A) 0.4 k/uL (0-0.7); Eosinophils % (A) 4 %; HCT 46.2 % (34.0-46.0); HDW 2.99; HGB 15.1 gm/dL (11.4-16.0); Luc # (Auto) 0.16; Luc % (Auto) 2; Lymphocytes # (A) 1.6 k/uL (1.0-4.8); Lymphocytes % (A) 18 %; MCH 28.7 pg (25.0-35.0); MCHC 32.8 g/dL (31.0-37.0); MCV 87.7 fL (80.0-100.0); Mean Platelet Volume 7.3; Monocytes # (A) 0.6 k/uL (0-1.0); Monocytes % (A) 7 %; Neutrophils # (A) 6.4 k/uL (1.3-7.7); Neutrophils % (A) 69 %; RBC 5.27 m/uL (3.80-5.40); WBC 9.3 k/uL (3.8-10.6); WBC (Perox) 8.79
[2016-11-24 04:55] LABS: INR 4.3 (<1.1); Prothrombin Time 42.3 sec (9.0-12.0)
[2016-11-24 04:58] LABS: Calcium 8.8 mg/dL (8.4-10.2)
[2016-11-24] MEDS: LEVOTHYROXINE 137 MCG TAB PO SCH (06:32)
[2016-11-24] MEDS: POTASSIUM CHLORIDE ER 20 MEQ TAB.ER PO SCH ×4 (06:33→18:56)
--- NOTE | 2016-11-24 07:56 | XR ---
EXAMINATION TYPE: XR chest 2V DATE OF EXAM: 11/24/2016 COMPARISON: Chest x-ray from yesterday HISTORY: CHF per order. TECHNIQUE: Frontal and lateral views of the chest are obtained. FINDINGS: There is no focal air space opacity, pleural effusion, or pneumothorax seen. The cardiac silhouette size is stable and mildly enlarged. Some improvement in central vascular congestion is fel t present. The osseous structures are intact. Cholecystectomy clips are noted on lateral view. IMPRESSION: Persistent mild cardiomegaly with improving central vascular congestion. No new infiltra te.
[2016-11-24] MEDS: FUROSEMIDE 10 MG/ML 2 ML VIAL IV SCH (08:27)
[2016-11-24] MEDS ORDERED: POTASSIUM CHLORIDE ER 10 MEQ TAB.ER.PRT PO SCH (09:00)
[2016-11-24] MEDS ORDERED: WARFARIN 3 MG TAB PO SCH (09:00)
--- NOTE | 2016-11-24 12:32 | ECHOF ---
Referral Reason:sob MEASUREMENTS -------- HEIGHT: 157.5 cm WEIGHT: 91.2 kg BP: 129/60 RVIDd: 2.9 cm (< 3.3) IVSd: 1.1 cm (0.6 - 1.1) LVIDd: 3.4 cm (3.9 - 5.3) LVPWd: 0.9 cm (0.6 - 1.1) IVSs: 1.6 cm LVIDs: 2.3 cm LVPWs: 1.6 cm LA Diam: 2.4 cm (2.7 - 3.8) LAESV Index (A-L): 14.51 ml/m Ao Diam: 3.2 cm (2.0 - 3.7) AV Cusp: 1.8 cm (1.5 - 2.6) MV EXCURSION: 8.785 mm (> 18.000) MV EF SLOPE: 24 mm/s (70 - 150) EPSS: 0.5 cm RAP: 5.00 mmHg RVSP: 31.05 mmHg FINDINGS -------- Sinus rhythm. This was a technically adequate study. The left ventricular size is normal. There is borderline concentric left ventricular hypertrophy. Overall left ventricular systolic function is normal with, an EF between 55 - 60 %. The right ventricle is normal in size and function. Normal LA size by volume 22+/-6 ml/m2. The right atrium is normal in size. The aortic valve was not well visualized. Mild mitral annular calcification present. There is trace to mild mitral regurgitation. Mild tricuspid regurgitation present. Right ventricular systolic pressure is normal at < 35 mmHg. The pulmonic valve was not well visualized. There is no pulmonic regurgitation present. The aortic root size is normal. Normal inferior vena cava with normal inspiratory collapse consistent with estimated right atrial pressure of 5 mmHg. There is no pericardial effusion. CONCLUSIONS -------- 1. This was a technically adequate study. 2. The pulmonic valve was not well visualized. 3. There is no pulmonic regurgitation present. 4. The aortic root size is normal. 5. There is no pericardial effusion. 6. There is borderline concentric left ventricular hypertrophy. 7. Overall left ventricular systolic function is normal with, an EF between 55 - 60 %. 8. Normal LA size by volume 22+/-6 ml/m2. 9. The aortic valve was not well visualized. 10. Mild mitral annular calcification present. 11. There is trace to mild mitral regurgitation. 12. Mild tricuspid regurgitation present. 13. Right ventricular systolic pressure is normal at < 35 mmHg. CONTACT FINGER ASSEMBLER: Cassie Aleman RDCS
[2016-11-24] MEDS: CHOLECALCIFEROL 1,000 UNIT TAB PO SCH (13:28)
[2016-11-24] MEDS ORDERED: POTASSIUM CHLORIDE ER 20 MEQ TAB.ER PO STA (15:36)
--- NOTE | 2016-11-24 16:45 | US ---
EXAMINATION TYPE: US venous doppler duplex LE BI DATE OF EXAM: 11/24/2016 4:32 PM COMPARISON: NONE CLINICAL HISTORY: 86-year-old female chronic DVT. Bilateral edema SIDE PERFORMED: Bilateral TECHNIQUE: The lower extremity deep venous system is examined utilizing real time linear array sonog paris with graded compression, doppler sonography and color-flow sonography. FINDINGS: VESSELS IMAGED: External Iliac Vein (EIV) Common Femoral Vein Deep Femoral Vein Greater Saphenous Vein * Femoral Vein Popliteal Vein Small Saphenous Vein * (* superficial vessels) Right Leg: Negative for DVT Left Leg: Negative for DVT IMPRESSION: No evidence for DVT within the bilateral lower extremities imaged from the groin to the knees.
--- NOTE | 2016-11-24 17:46 | P.PN ---
Progress Note - Text DATE OF SERVICE: 11/24/2016 PRESENTING COMPLAINT: Increasing shortness of breath INTERVAL HISTORY: This is an 86-year-old female who presented with increasing shortness of breath , and increasing lower extremity edema likely due to increased water intake and venous insufficiency, less likely congestive heart failure exacerbation. 11/24/2016: Sitting in the chair, significant other at the bedside, bilateral lower extremities Dom wrapped appear much better. Patient's breathing is much improved, able to talk without appearing short of breath. appears more relaxed , very chatty. REVIEW OF SYSTEMS: Done for constitutional ,cardiovascular, GI, pulmonary with relevant findings as above. CURRENT MEDICATIONS Valium, Synthroid, Cozaar, Pepcid, Cader. PHYSICAL EXAM VITAL SIGNS: Temperature 97.9, pulse 88, respiratory rate 18, blood pressure 126/90, oxygen saturation 94% on room air. GENERAL APPEARANCE: Sitting in chair, not in distress. EYES: Pupils equal. Conjunctiva normal. NECK: JVD not raised. Mass not palpable. RESPIRATORY: Respiratory effort normal. Lungs clear to auscultation. CARDIOVASCULAR: First and second sounds normal. No edema. ABDOMEN: Soft. Liver and spleen not palpable. No tenderness. No mass palpable. PSYCHIATRY: Alert and oriented x3. Mood and affect normal. INVESTIGATIONS: LABS: White blood cell count 9.3, hemoglobin 15.1, INR 4.3, potassium 3.0, BUN 24 creatinine 1.20, troponins less than 0.012 times 4 episodes ECHOCARDIOGRAM: Normal sinus rhythm, EF between 55 and 60% mild mitral regurgitation, mild tricuspid regurgitation. ASSESSMENT: -Acute bilateral lower chronic lower extremity venous insufficiency, secondary to chronic DVT, and excessive fluid intake, doubt congestive heart failure exacerbation. 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 Plan of care was discussed with the patient QUESTIONS answered. We'll monitor closely. CERTIFIED OPHTHALMIC ASSISTANT statement: Patient was seen and examined by nurse practitioner Tri Vazquez and all elements of the case discussed with attending Dr. Abernathy
[2016-11-24 18:51] VITALS: RESP 16
[2016-11-24] MEDS: MONTELUKAST 10 MG TAB PO SCH (21:04)
[2016-11-24] MEDS: FAMOTIDINE 20 MG TAB PO SCH (21:04)
[2016-11-25] MEDS: LEVOTHYROXINE 137 MCG TAB PO SCH (06:07)
[2016-11-25 07:56] LABS: Potassium 3.9 mmol/L (3.5-5.1)
[2016-11-25 08:15] VITALS: BP 127/65; PULSE 59; TEMP 97.4
[2016-11-25] MEDS ORDERED: LOSARTAN 50 MG TAB PO SCH (09:00)
[2016-11-25] MEDS: POTASSIUM CHLORIDE ER 20 MEQ TAB.ER PO SCH (09:12)
--- NOTE | 2016-11-25 09:19 | CONS ---
This is an elderly 86-year-old lady who was admitted to the hospital with complaints of increasing shortness of breath and swelling of her lower extremities. She was admitted with a diagnosis of congestive heart failure, but clinically she is not in heart failure. Her troponins are normal. BNP is normal. She is resting comfortable and indicates to me that she had a cardiac cath in . Has no significant disease and she has a left bundle branch block pattern. She lives in [place] most of the time and now has moved to [place] in summer. She carries a diagnosis of DVT, pulmonary embolism, takes Coumadin and has a [place] filter. She also has hypertension, hypothyroidism as well. At the time of my evaluation, she is resting comfortably. She is hypokalemia. Potassium supplements have been given. PAST MEDICAL HISTORY: 1. History of DVT and pulmonary embolism on [place] filter and Coumadin. 2. Hypertension. 3. Hypothyroidism. 4. History of cardiac cath in the mid s, has no blockages and she always has a left bundle branch block pattern. Medications at home include Dyazide, Singulair, Coumadin, ranitidine, potassium , Synthroid, diazepam and vitamin supplements. ALLERGIES: She is allergic to PENICILLIN. REVIEW OF SYSTEMS: Remarkable for exertional shortness of breath, fatigue, lack of energy. Denies any hematemesis, melena, genitourinary ( ). No fever or chills or cough with expectoration. EKG revealed sinus mechanism with evidence of IVCD of LBBB type with leftward axis, nonspecific ST-T changes were noted. On examination, blood pressure is 130/70, pulse rate of 70 per minute and regular. HEENT: Unremarkable. Fundus was not examined by me. NECK: Supple. There is JVD of 1 cm. No carotid bruit. Heart exam reveals S1, S2 heard normally with a short systolic murmur at the base and left sternal border. Lungs reveal diminished air entry, both bases. There are no rales. Abdomen is soft, nontender. Lower extremities reveal normal pulses, 1+ edema bilaterally. Central nervous system grossly within normal limits. EKG revealed sinus mechanism with IVCD of LBBB type. IMPRESSION: 1. A lower extremity edema of unclear etiology. 2. Hypertension. 3. Hypokalemia. 4. No evidence to suggest any congestive heart failure. 5. Patient does not have any known coronary artery disease and her presentation does not suggest acute myocardial ischemia. RECOMMENDATIONS: I am recommending that we obtain echocardiogram, supplement the potassium and based on these findings. I will make further recommendations. Patient is not clinically in any heart failure at this time. She may have some diastolic dysfunction. I discussed my thoughts in detail with the patient. We will recheck the potassium since she is being supplemented. GOLDEN
[2016-11-25 09:32] VITALS: BMI 37.7
[2016-11-25 09:54] LABS: INR 3.2 (<1.1); Prothrombin Time 30.6 sec (9.0-12.0)
[2016-11-25] MEDS ORDERED: FAMOTIDINE 20 MG TAB PO SCH (10:00)
[2016-11-25] MEDS: CHOLECALCIFEROL 1,000 UNIT TAB PO SCH (13:34)
--- NOTE | 2016-11-25 13:56 | PN ---
DATE OF SERVICE: 11/24/16 ATTENDING NOTE: This patient was seen and examined by me. I reviewed the progress note of my nurse practitioner, Ms. Vazquez. Discussed additional findings as below. The patient admitted with acute fluid overload with exacerbation of venous insufficiency lower extremity. The patient does drink excessive fluids. The patient did get IV Lasix. On examination, blood pressure 132/67. Pulse 96% on 2 L. Lungs decreased breath sounds. Lower extremity edema is present. ASSESSMENT: 1. Acute bilateral lower extremity venous insufficiency exacerbation from excessive fluid intake and worsening of the same from chronic deep vein thromboses. 2. Severe hypokalemia, potassium to be replaced. 3. Coumadin monitoring, INR 4.3. INVESTIGATIONS: Doppler ultrasound of both lower extremities negative for DVTs. 2D echocardiogram shows EF 55 to 60%. PLAN: Keep the patient on fluid restriction. IV Lasix is being discontinued. Care was discussed with the patient. GOLDEN
--- NOTE | 2016-11-25 20:08 | P.DS ---
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 Cardiology was consulted, potassium supplemented. Breathing improved, no longer requiring oxygen, patient diuresed well, lower extremity swelling reduced. Patient's ambulatory in the room in the gasca, tolerating her diet, moved her bowels and from a medical standpoint patient is ready for discharge. PHYSICAL EXAM: CARDIOVASCULAR: First and second sounds noted, +2 edema to the bilateral lower extremities. RESPIRATORY: Respiratory effort normal, lung sounds decreased bilaterally. GI: Abdomen soft nontender liver and spleen not palpable positive bowel sounds 4 MUSKULOSKELETAL:.: Ambulatory within the room and hallway, he uses a cane Patient was seen and examined by nurse practitioner Tri Vazquez in all elements of the case discussed with attending Dr. Abernathy DISPOSITION: Pertinent Studies: VENOUS Doppler: Negative for DVT ECHOCARDIOGRAM: Normal sinus rhythm, EF of 55-60% mild mitral regurgitation, mild tricuspid regurgitation. Plan - Discharge Summary New Discharge Prescriptions: New Furosemide [Lasix] 20 mg PO DAILY #30 tab Continue Warfarin [Coumadin] 3 mg PO DAILY Levothyroxine Sodium [Synthroid] 137 mcg PO DAILY Ranitidine HCl [Zantac] 150 mg PO BID Diazepam [Valium] 5 mg PO BID PRN PRN Reason: Anxiety Potassium Chloride 8 meq PO BID Montelukast [Singulair] 10 mg PO HS Cholecalciferol [Vitamin D3] 1,000 unit PO DAILY Discontinued Triamterene-Hctz 37.5-25Mg [Dyazide 37.5-25 Capsule] 1 cap PO DAILY Discharge Medication List Diazepam [Valium] 5 mg PO BID PRN 11/16/16 [History] Levothyroxine Sodium [Synthroid] 137 mcg PO DAILY 11/16/16 [History] Potassium Chloride 8 meq PO BID 11/16/16 [History] Ranitidine HCl [Zantac] 150 mg PO BID 11/16/16 [History] Warfarin [Coumadin] 3 mg PO DAILY 11/16/16 [History] Cholecalciferol [Vitamin D3] 1,000 unit PO DAILY 11/23/16 [History] Montelukast [Singulair] 10 mg PO HS 11/23/16 [History] Furosemide [Lasix] 20 mg PO DAILY #30 tab 11/25/16 [Rx] Follow up Appointment(s)/Referral(s): Madelyn Whitten MD [STAFF PHYSICIAN] - 1 Week (Dr. Whitten's office will call patient with an appointment date and time.) Rj Vo MD [Primary Care Provider] - 11/30/16 3:00 pm Ambulatory/Diagnostic Orders: Basic Metabolic Panel [LAB.AMB] Location: Determined By Patient Complete Blood Count w/diff [LAB.AMB] Location: Determined By Patient Prothrombin Time INR [LAB.AMB] Location: Determined By Patient Patient Instructions/Handouts: Furosemide (By mouth), Heart Failure (DC) Activity/Diet/Wound Care/Special Instructions: Wrap lower extremities with aleksey wraps at night Reduce total quantity of water being consumed Discharge Disposition: HOME SELF-CARE
--- NOTE | 2016-11-26 13:51 | CDI ---
In responding to this query, please exercise your independent professional judgment. The [facility] Coding Staff and Clinical Documentation Specialists appreciate your assistance in clarifying documentation, maintaining compliance with coding guidelines, accurately documenting patients condition and capturing severity of illness. The fact that a question is asked does not imply that any particular answer is desired or expected. Communication forms are a method of clarifying documentation and are not made part of the Legal Health Record. Thank you in advance for your clarification. Last Revision, July 2016 Lexy [place] [address] [facility] [place] [address] Documentation Clarification Form Date: 11/26/2016 1:38:00 PM From: Leonela Cancino Admit Date: 11/23/2016 6:06:00 PM Patient Name: Stephanie Gutierres Visit Number: [id number] Discharge Date: Dr. Geoffrey Abernathy CHF is documented in the discharge summary. IV lasix administered. Echo: Overall left ventricular systolic function is normal with and EF between 55-60% . There is borderline concentric left venticular hypertrophy. Right ventricular systolic pressure is normal at <35 mmHg. In your professional opinion, can you please clarify the acuity and type of CHF if known? Systolic Heart Failure: Acute Chronic Acute on Chronic Diastolic Heart Failure: Acute Chronic Acute on Chronic Systolic & Diastolic Heart Failure: Acute Chronic Acute on Chronic Unable to determine Other, please specify Please document addendum in your discharge summary in order to capture severity of illness and risk of mortality. Include clinical findings that support your diagnosis. FYI: Press F11 to launch patient chart. Place X here if this finding has no clinical significance, is not applicable or if you are not able to provide any additional documentation. SERGEI Hartley, CCS, [facility] Certified I-10 Rail Tractor Operator/Rosine/Rail Tractor Operator II If you have a question about this query, please contact Brit Reaves, [place], Lexy Merrill at [phone] melanie 8am and 5pm. GOLDEN
--- NOTE | 2016-11-27 14:21 | CDI ---
In responding to this query, please exercise your independent professional judgment. The [facility] Coding Staff and Clinical Documentation Specialists appreciate your assistance in clarifying documentation, maintaining compliance with coding guidelines, accurately documenting patients condition and capturing severity of illness. The fact that a question is asked does not imply that any particular answer is desired or expected. Communication forms are a method of clarifying documentation and are not made part of the Legal Health Record. Thank you in advance for your clarification. Last Revision, July 2016 Lexy [place] [address] [facility] [place] [address] Documentation Clarification Form Date: 11/26/2016 1:38:00 PM From: Leonela Cancino Admit Date: 11/23/2016 6:06:00 PM Patient Name: Stephanie Gutierres Visit Number: [id number] Discharge Date: 11/25/16 Dr. Geoffrey Abernathy CHF is documented in the discharge summary. IV lasix administered. Echo: Overall left ventricular systolic function is normal with and EF between 55-60% . There is borderline concentric left venticular hypertrophy. Right ventricular systolic pressure is normal at <35 mmHg. In your professional opinion, can you please clarify the acuity and type of CHF if known? Systolic Heart Failure: Acute Chronic Acute on Chronic Diastolic Heart Failure: Acute Chronic Acute on Chronic Systolic & Diastolic Heart Failure: Acute Chronic Acute on Chronic Unable to determine Other, please specify Please document addendum in your discharge summary in order to capture severity of illness and risk of mortality. Include clinical findings that support your diagnosis. FYI: Press F11 to launch patient chart. If you have a question about this query, please contact Brit Reaves, Production Line Welder, Lexy [place]ill at [phone] betweeen 8am and 5pm. [place]
--- NOTE | 2016-11-27 19:29 | P.DS ---
Providers Date of admission: 11/23/16 18:06 Expected date of discharge: 11/25/16 Attending physician: Geoffrey Abernathy Consults: 11/23/16 20:23 Consult Physician Routine Consulting Provider: Fern Pan Consult Reason/Comments: chf Do you want consulting provider notified?: Yes, Notify in am Primary care physician: Rj Vo [place] [facility] Course: ADDENDUM: To discharge summary for Stephanie Gutierres, dated 11/25/2016. Final diagnoses is incorrect, acute exacerbation of congestive heart failure is the incorrect diagnoses the proper final diagnoses list should read as follows: FINAL DIAGNOSES: -Acute bilateral lower chronic lower extremity venous insufficiency, secondary to chronic DVT, and excessive fluid intake, doubt congestive heart failure exacerbation. 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 -Chronic rheumatoid arthritis -Obesity BMI 36.8 -Gait dysfunction uses a walker/cane Plan - Discharge Summary New Discharge Prescriptions: New Furosemide [Lasix] 20 mg PO DAILY #30 tab Continue Warfarin [Coumadin] 3 mg PO DAILY Levothyroxine Sodium [Synthroid] 137 mcg PO DAILY Ranitidine HCl [Zantac] 150 mg PO BID Diazepam [Valium] 5 mg PO BID PRN PRN Reason: Anxiety Potassium Chloride 8 meq PO BID Montelukast [Singulair] 10 mg PO HS Cholecalciferol [Vitamin D3] 1,000 unit PO DAILY Discontinued Triamterene-Hctz 37.5-25Mg [Dyazide 37.5-25 Capsule] 1 cap PO DAILY Discharge Medication List Diazepam [Valium] 5 mg PO BID PRN 11/16/16 [History] Levothyroxine Sodium [Synthroid] 137 mcg PO DAILY 11/16/16 [History] Potassium Chloride 8 meq PO BID 11/16/16 [History] Ranitidine HCl [Zantac] 150 mg PO BID 11/16/16 [History] Warfarin [Coumadin] 3 mg PO DAILY 11/16/16 [History] Cholecalciferol [Vitamin D3] 1,000 unit PO DAILY 11/23/16 [History] Montelukast [Singulair] 10 mg PO HS 11/23/16 [History] Furosemide [Lasix] 20 mg PO DAILY #30 tab 11/25/16 [Rx] Follow up Appointment(s)/Referral(s): Madelyn Whitten MD [STAFF PHYSICIAN] - 1 Week (Dr. Whitten's office will call patient with an appointment date and time.) Rj Vo MD [Primary Care Provider] - 11/30/16 3:00 pm Ambulatory/Diagnostic Orders: Basic Metabolic Panel [LAB.AMB] Location: Determined By Patient Complete Blood Count w/diff [LAB.AMB] Location: Determined By Patient Prothrombin Time INR [LAB.AMB] Location: Determined By Patient Patient Instructions/Handouts: Furosemide (By mouth), Heart Failure (DC) Activity/Diet/Wound Care/Special Instructions: Wrap lower extremities with aleksey wraps at night Reduce total quantity of water being consumed Discharge Disposition: HOME SELF-CARE
--- NOTE | 2016-11-27 19:41 | P.PN ---
Progress Note - Text ADDENDUM: DISCHARGE SUMMARY: Stephanie Gutierres The first of the Final diagnoses are incorrect. The incorrect line is listed below. -Acute exacerbation of congestive heart failure This should not be here at all The following are the proper final diagnoses for this discharge summary: -Acute bilateral lower chronic lower extremity venous insufficiency, secondary to chronic DVT, and excessive fluid intake, doubt congestive heart failure exacerbation. 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
--- NOTE | 2016-11-29 16:34 | P.DS ---
<Tri Vazquez - Last Filed: 11/29/16 16:33> Providers Date of admission: 11/23/16 18:06 Expected date of discharge: 11/25/16 Attending physician: Geoffrey Abernathy Consults: 11/23/16 20:23 Consult Physician Routine Consulting Provider: Fern Pan Consult Reason/Comments: chf Do you want consulting provider notified?: Yes, Notify in am Primary care physician: Rj Vo Hospital Course: ADDENDUM: DISCHARGE SUMMARY: Stephanie Gutierres The first of the Final diagnoses are incorrect. The incorrect line is listed below. -Acute exacerbation of congestive heart failure This should not be here at all The following are the proper final diagnoses for this discharge summary: -Acute bilateral lower chronic lower extremity venous insufficiency, secondary to chronic DVT, and excessive fluid intake, doubt congestive heart failure exacerbation. 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 -Chronic rheumatoid arthritis -Obesity BMI 36.8 -Gait dysfunction uses a walker/cane Tri Vazquez MSN, RN, ACNP- Plan - Discharge Summary New Discharge Prescriptions: New Furosemide [Lasix] 20 mg PO DAILY #30 tab Continue Warfarin [Coumadin] 3 mg PO DAILY Levothyroxine Sodium [Synthroid] 137 mcg PO DAILY Ranitidine HCl [Zantac] 150 mg PO BID Diazepam [Valium] 5 mg PO BID PRN PRN Reason: Anxiety Potassium Chloride 8 meq PO BID Montelukast [Singulair] 10 mg PO HS Cholecalciferol [Vitamin D3] 1,000 unit PO DAILY Discontinued Triamterene-Hctz 37.5-25Mg [Dyazide 37.5-25 Capsule] 1 cap PO DAILY Discharge Medication List Diazepam [Valium] 5 mg PO BID PRN 11/16/16 [History] Levothyroxine Sodium [Synthroid] 137 mcg PO DAILY 11/16/16 [History] Potassium Chloride 8 meq PO BID 11/16/16 [History] Ranitidine HCl [Zantac] 150 mg PO BID 11/16/16 [History] Warfarin [Coumadin] 3 mg PO DAILY 11/16/16 [History] Cholecalciferol [Vitamin D3] 1,000 unit PO DAILY 11/23/16 [History] Montelukast [Singulair] 10 mg PO HS 11/23/16 [History] Furosemide [Lasix] 20 mg PO DAILY #30 tab 11/25/16 [Rx] Follow up Appointment(s)/Referral(s): Madelyn Whitten MD [STAFF PHYSICIAN] - 1 Week (Dr. Whitten's office will call patient with an appointment date and time.) Rj Vo MD [Primary Care Provider] - 11/30/16 3:00 pm Ambulatory/Diagnostic Orders: Basic Metabolic Panel [LAB.AMB] Location: Determined By Patient Complete Blood Count w/diff [LAB.AMB] Location: Determined By Patient Prothrombin Time INR [LAB.AMB] Location: Determined By Patient Patient Instructions/Handouts: Furosemide (By mouth), Heart Failure (DC) Activity/Diet/Wound Care/Special Instructions: Wrap lower extremities with aleksey wraps at night Reduce total quantity of water being consumed Discharge Disposition: HOME SELF-CARE <Geoffrey Abernathy - Last Filed: 11/29/16 16:41> Hospital Course: Attending note. Date of service-11/25/2016 This patient was seen and examined by me . I reviewed the note of my nurse practitioner, Ms. Vazquez. Discussed with her, additional findings as below. Patient doing better. Care is discussed in detail with the patient and at the bedside. On examination: Some edema lower extremity Investigations: INR 3.2 Assessment and plan: Acute fluid overload, and bilateral lower extremity venous insufficiency responded well to diuretic. Care was discussed in detail with the patient and at the bedside Discharge planning more than 35 minutes
== END 2016-11-25 16:54 | disposition home or self-care (01) | DRG 300 ==
LOC: EC 14:02 → 6SEL 18:06 → 5MS5E 11-24 14:34
PROVIDERS: ADMIT Hospitalist; ATTEND Hospitalist
DX: I87.2 Venous insufficiency (chronic) (peripheral) (principal); I82.509 Chronic embolism and thrombosis of unspecified deep veins of unspecified lower extremity; I11.0 Hypertensive heart disease with heart failure; I50.9 Heart failure, unspecified; I44.7 Left bundle-branch block, unspecified; M06.9 Rheumatoid arthritis, unspecified; E03.9 Hypothyroidism, unspecified; E87.6 Hypokalemia; I25.10 Atherosclerotic heart disease of native coronary artery without angina pectoris; E66.9 Obesity, unspecified; Z68.36 Body mass index [BMI] 36.0-36.9, adult; Z71.3 Dietary counseling and surveillance; F41.9 Anxiety disorder, unspecified; R26.9 Unspecified abnormalities of gait and mobility; Z86.711 Personal history of pulmonary embolism; Z79.01 Long term (current) use of anticoagulants; Z79.899 Other long term (current) drug therapy
CPT/HCPCS: 36415; 71020; 80048; 80053; 82550; 82553; 83605; 83880; 84132; 84484; 85025; 85610; 85730; 87040; 93005; 93306; 93970; 96374; 99285

== ENCOUNTER → 2016-11-28 | Outpatient (CLI) | payer MEDICARE, BC ==
[2016-11-28 10:14] LABS: INR 2.7 (<1.2); Prothrombin Time 26.1 sec (9.0-12.0)
[2016-11-28 10:17] LABS: Anisocytosis Slight; Basophils % (A) 1 %; CH 28.7; CHCM 31.6; Eosinophils # (A) 0.3 k/uL (0-0.7); Eosinophils % (A) 4 %; HCT 43.9 % (34.0-46.0); HDW 2.85; Hypochromasia Slight; Luc # (Auto) 0.12; Luc % (Auto) 2; Lymphocytes # (A) 1.4 k/uL (1.0-4.8); Lymphocytes % (A) 18 %; MCH 29.1 pg (25.0-35.0); MCHC 31.9 g/dL (31.0-37.0); MCV 91.3 fL (80.0-100.0); Mean Platelet Volume 7.6; Monocytes # (A) 0.4 k/uL (0-1.0); Monocytes % (A) 6 %; Neutrophils # (A) 5.2 k/uL (1.3-7.7); Neutrophils % (A) 70 %; RBC 4.81 m/uL (3.80-5.40); WBC 7.5 k/uL (3.8-10.6); WBC (Perox) 7.38
[2016-11-28 10:25] LABS: Anion Gap 9 mmol/L; Blood Urea Nitrogen 26 mg/dL (7-17); Calcium 8.8 mg/dL (8.4-10.2); Carbon Dioxide 25 mmol/L (22-30); Chloride 106 mmol/L (98-107); Glucose 109 mg/dL (74-99); Non-African American GFR(MDRD) 52 (>60 ml/min/1.73 sqM); Potassium 3.8 mmol/L (3.5-5.1); Sodium 140 mmol/L (137-145)
== END | disposition home or self-care (01) ==
LOC: LABWHC1 09:33
PROVIDERS: ATTEND Nurse Practitioner Acute Care
DX: E87.8 Other disorders of electrolyte and fluid balance, not elsewhere classified (principal); Z79.01 Long term (current) use of anticoagulants; Z51.81 Encounter for therapeutic drug level monitoring
CPT/HCPCS: 36415; 80048; 85025; 85610

== ENCOUNTER → 2016-12-22 | Outpatient (CLI) | payer MEDICARE, BC ==
[2016-12-22 11:21] LABS: Anion Gap 10 mmol/L; Blood Urea Nitrogen 17 mg/dL (7-17); Calcium 8.8 mg/dL (8.4-10.2); Carbon Dioxide 26 mmol/L (22-30); Chloride 104 mmol/L (98-107); Glucose 97 mg/dL (74-99); Non-African American GFR(MDRD) 56 (>60 ml/min/1.73 sqM); Potassium 3.6 mmol/L (3.5-5.1); Sodium 140 mmol/L (137-145)
[2016-12-22 17:32] LABS: Urine Creatinine 134.9 mg/dL
== END | disposition home or self-care (01) ==
LOC: LABWHC1 10:32
PROVIDERS: ATTEND Internal Medicine
DX: E11.9 Type 2 diabetes mellitus without complications (principal); I10 Essential (primary) hypertension; E87.6 Hypokalemia
CPT/HCPCS: 36415; 80048; 82043; 82570

== ENCOUNTER → 2017-02-04 | Outpatient (CLI) | payer MEDICARE, BC ==
[2017-02-04 13:57] LABS: Anisocytosis Slight; Basophils # (A) 0.1 k/uL (0-0.2); Basophils % (A) 1 %; CHCM 33.1; Eosinophils # (A) 0.4 k/uL (0-0.7); Eosinophils % (A) 5 %; HCT 44.4 % (34.0-46.0); HDW 3.09; HGB 14.4 gm/dL (11.4-16.0); Luc # (Auto) 0.12; Luc % (Auto) 2; Lymphocytes # (A) 1.3 k/uL (1.0-4.8); Lymphocytes % (A) 19 %; MCH 29.5 pg (25.0-35.0); MCHC 32.4 g/dL (31.0-37.0); MCV 91.1 fL (80.0-100.0); Mean Platelet Volume 8.1; Monocytes # (A) 0.4 k/uL (0-1.0); Monocytes % (A) 5 %; Neutrophils # (A) 4.6 k/uL (1.3-7.7); Neutrophils % (A) 67 %; RBC 4.87 m/uL (3.80-5.40); RDW 16.2 % (11.5-15.5); WBC 6.8 k/uL (3.8-10.6); WBC (Perox) 7.24
[2017-02-04 14:11] LABS: ALT 29 U/L (9-52); AST 19 U/L (14-36); Alkaline Phosphatase 96 U/L (38-126); Anion Gap 10 mmol/L; Blood Urea Nitrogen 19 mg/dL (7-17); Calcium 9.1 mg/dL (8.4-10.2); Carbon Dioxide 24 mmol/L (22-30); Chloride 104 mmol/L (98-107); Glucose 95 mg/dL (74-99); Non-African American GFR(MDRD) 56 (>60 ml/min/1.73 sqM); Phosphorous 3.5 mg/dL (2.5-4.5); Potassium 3.6 mmol/L (3.5-5.1); Sodium 138 mmol/L (137-145); Total Bilirubin 0.8 mg/dL (0.2-1.3); Total Protein 6.5 g/dL (6.3-8.2)
== END | disposition home or self-care (01) ==
LOC: LABWHC1 12:45
PROVIDERS: ATTEND Internal Medicine
DX: L29.9 Pruritus, unspecified (principal)
CPT/HCPCS: 36415; 80053; 84100; 85025

== ENCOUNTER 2017-10-12 20:42 | Emergency (ER) | payer MEDICARE, BC ==
[2017-10-12] MEDS ORDERED: SODIUM CHLORIDE 0.9% 1,000 ML IV STA (20:57)
[2017-10-12] MEDS ORDERED: IPRATROPIUM-ALBUTEROL 3 ML NEB INHALATION STA (20:57)
--- NOTE | 2017-10-12 21:03 | ED ---
General Adult HPI - General Chief complaint: Shortness of Breath Stated complaint: SOB Time Seen by Provider: 10/12/17 20:50 Source: patient, RN notes reviewed, old records reviewed Mode of arrival: wheelchair Limitations: no limitations - History of Present Illness Initial comments: This is an 87-year-old female the ER for evaluation of congestion shortness of breath runny nose, difficulty breathing. Patient insertion with development pneumonia which she developed and has developed before, she states is no longer but is not that bad but she had some chills last night is very concerned she may have pneumonia. She denies any recent known sick contacts, patient was hospitalized in [place] - Related [facility] Home Medications Medication Instructions Recorded Confirmed Diazepam [Valium] 5 mg PO BID PRN 11/16/16 10/12/17 Ranitidine HCl [Zantac] 150 mg PO BID 11/16/16 10/12/17 Warfarin [Coumadin] 3 mg PO DAILY 11/16/16 10/12/17 Cholecalciferol [Vitamin D3] 1,000 unit PO DAILY 11/23/16 10/12/17 Montelukast [Singulair] 10 mg PO HS 11/23/16 10/12/17 Furosemide [Lasix] 20 mg PO DAILY PRN 10/12/17 10/12/17 Magnesium 200 mg PO DAILY 10/12/17 10/12/17 Potassium Chloride ER [K-Dur 10] 10 meq PO DAILY 10/12/17 10/12/17 Previous Rx's Medication Instructions Recorded Albuterol Sulfate [Proair Hfa] 1 - 2 puff INHALATION Q4H PRN #1 10/12/17 inhaler Azithromycin [Zithromax Z-pack] 0 mg PO DIRECTED #1 pack 10/12/17 Allergies Allergy/AdvReac Type Severity Reaction Status Date / Time nitroglycerin AdvReac Unknown Verified 10/12/17 21:45 [From Nitrostat] Penicillins AdvReac Nausea & Verified 10/12/17 21:45 Vomiting Review of Systems ROS Statement: Those systems with pertinent positive or pertinent negative responses have been documented in the HPI. ROS Other: All systems not noted in ROS Statement are negative. Past Medical History Past Medical History: Heart Failure, Thyroid Disorder Additional Past Medical History / Comment(s): blood clot filter Last Myocardial Infarction Date:: 1981 History of Any Multi-Drug Resistant Organisms: None Reported Past Surgical History: Appendectomy, Cholecystectomy, Hysterectomy Additional Past Surgical History / Comment(s): carpal tunnel Past Anesthesia/Blood Transfusion Reactions: Postoperative Nausea & Vomiting ( PONV) Past Psychological History: No Psychological Hx Reported Smoking Status: Never smoker Past Alcohol Use History: None Reported Past Drug Use History: None Reported - Past Family History Father Family Medical History: Cancer Additional Family Medical History / Comment(s): esophagus and lung CA Sister(s) Additional Family Medical History / Comment(s): sister had stent placement Mother Family Medical History: Cancer Additional Family Medical History / Comment(s): Bowel and liver CA General Exam Limitations: no limitations General appearance: alert, in no apparent distress Head exam: Present: atraumatic, normocephalic, normal inspection Eye exam: Present: normal appearance, PERRL, EOMI. Absent: scleral icterus, conjunctival injection, periorbital swelling ENT exam: Present: normal exam, mucous membranes moist Neck exam: Present: normal inspection. Absent: tenderness, meningismus, lymphadenopathy Respiratory exam: Present: normal lung sounds bilaterally. Absent: respiratory distress, wheezes, rales, rhonchi, stridor Cardiovascular Exam: Present: regular rate, normal rhythm, normal heart sounds. Absent: systolic murmur, diastolic murmur, rubs, gallop, clicks GI/Abdominal exam: Present: soft, normal bowel sounds. Absent: distended, tenderness, guarding, rebound, rigid Extremities exam: Present: normal inspection, full ROM, normal capillary refill. Absent: tenderness, pedal edema, joint swelling, calf tenderness Back exam: Present: normal inspection Neurological exam: Present: alert, oriented X3, CN II-XII intact Psychiatric exam: Present: normal affect, normal mood Skin exam: Present: warm, dry, intact, normal color. Absent: rash Course Vital Signs 10/12/17 10/12/17 10/12/17 20:46 21:18 21:28 Temperature 98.8 F Pulse Rate 86 86 86 Respiratory 18 Rate Blood Pressure 159/73 O2 Sat by Pulse 95 Oximetry - Reevaluation(s) Reevaluation #1: 10/12/17 22:24 Patient's in no acute distress Medical Decision Making - Medical Decision Making 87 female the ER for evasive nonspecific shortness of breath, no acute distress here in the ER, vital signs normal and stable. Oxygen level normal, patient can be discharged home with normal x-ray will treat for bronchitis - Lab Data Result diagrams: 10/12/17 21:19 10/12/17 21:19 Lab Results 10/12/17 10/12/17 10/12/17 Range/Units 21:19 21:19 21:19 WBC 11.4 H (3.8-10.6) k/uL RBC 5.04 (3.80-5.40) m/uL Hgb 14.3 (11.4-16.0) gm/dL Hct 44.8 (34.0-46.0) % MCV 88.8 (80.0-100.0) fL MCH 28.3 (25.0-35.0) pg MCHC 31.9 (31.0-37.0) g/dL RDW 15.8 H (11.5-15.5) % Plt Count 269 (150-450) k/uL Neutrophils % 80 % Lymphocytes % 10 % Monocytes % 4 % Eosinophils % 5 % Basophils % 1 % Neutrophils # 9.1 H (1.3-7.7) k/uL Lymphocytes # 1.1 (1.0-4.8) k/uL Monocytes # 0.4 (0-1.0) k/uL Eosinophils # 0.5 (0-0.7) k/uL Basophils # 0.1 (0-0.2) k/uL PT (9.0-12.0) sec INR (<1.2) APTT (22.0-30.0) sec D-Dimer (<0.60) mg/L FEU Sodium 140 (137-145) mmol/L Potassium 4.7 (3.5-5.1) mmol/L Chloride 103 (98-107) mmol/L Carbon Dioxide 23 (22-30) mmol/L Anion Gap 14 mmol/L BUN 21 H (7-17) mg/dL Creatinine 1.05 H (0.52-1.04) mg/dL Est GFR (CKD-EPI)AfAm 55 (>60 ml/min/1.73 sqM) Est GFR (CKD-EPI)NonAf 48 (>60 ml/min/1.73 sqM) Glucose 137 H (74-99) mg/dL Calcium 9.1 (8.4-10.2) mg/dL Magnesium 2.0 (1.6-2.3) mg/dL Total Bilirubin 0.7 (0.2-1.3) mg/dL AST 29 (14-36) U/L ALT 19 (9-52) U/L Alkaline Phosphatase 83 (38-126) U/L Total Creatine Kinase 52 (30-135) U/L CK-MB (CK-2) 0.4 (0.0-2.4) ng/mL CK-MB (CK-2) Rel Index 0.8 Troponin I <0.012 (0.000-0.034) ng/mL NT-Pro-B Natriuret Pep pg/mL Total Protein 6.7 (6.3-8.2) g/dL Albumin 4.1 (3.5-5.0) g/dL 10/12/17 10/12/17 Range/Units 21:19 21:19 WBC (3.8-10.6) k/uL RBC (3.80-5.40) m/uL Hgb (11.4-16.0) gm/dL Hct (34.0-46.0) % MCV (80.0-100.0) fL MCH (25.0-35.0) pg MCHC (31.0-37.0) g/dL RDW (11.5-15.5) % Plt Count (150-450) k/uL Neutrophils % % Lymphocytes % % Monocytes % % Eosinophils % % Basophils % % Neutrophils # (1.3-7.7) k/uL Lymphocytes # (1.0-4.8) k/uL Monocytes # (0-1.0) k/uL Eosinophils # (0-0.7) k/uL Basophils # (0-0.2) k/uL PT 19.5 H (9.0-12.0) sec INR 2.2 H (<1.2) APTT 32.3 H (22.0-30.0) sec D-Dimer 0.31 (<0.60) mg/L FEU Sodium (137-145) mmol/L Potassium (3.5-5.1) mmol/L Chloride (98-107) mmol/L Carbon Dioxide (22-30) mmol/L Anion Gap mmol/L BUN (7-17) mg/dL Creatinine (0.52-1.04) mg/dL Est GFR (CKD-EPI)AfAm (>60 ml/min/1.73 sqM) Est GFR (CKD-EPI)NonAf (>60 ml/min/1.73 sqM) Glucose (74-99) mg/dL Calcium (8.4-10.2) mg/dL Magnesium (1.6-2.3) mg/dL Total Bilirubin (0.2-1.3) mg/dL AST (14-36) U/L ALT (9-52) U/L Alkaline Phosphatase (38-126) U/L Total Creatine Kinase (30-135) U/L CK-MB (CK-2) (0.0-2.4) ng/mL CK-MB (CK-2) Rel Index Troponin I (0.000-0.034) ng/mL NT-Pro-B Natriuret Pep 130 pg/mL Total Protein (6.3-8.2) g/dL Albumin (3.5-5.0) g/dL - Radiology Data Radiology results: report reviewed (Chest x-rays negative for acute disease), image reviewed Disposition Clinical Impression: Acute bronchitis Disposition: HOME SELF-CARE Condition: Good Instructions: Acute Bronchitis (ED) Prescriptions: Albuterol Sulfate [Proair Hfa] 1 - 2 puff INHALATION Q4H PRN #1 inhaler PRN Reason: Shortness Of Breath Azithromycin [Zithromax Z-pack] 0 mg PO DIRECTED #1 pack Is patient prescribed a controlled substance at d/c from ED?: No Referrals: Rj Vo MD [Primary Care Provider] - 1-2 days
[2017-10-12 21:32] LABS: Basophils # (A) 0.1 k/uL (0-0.2); Basophils % (A) 1 %; Eosinophils # (A) 0.5 k/uL (0-0.7); Eosinophils % (A) 5 %; HCT 44.8 % (34.0-46.0); HGB 14.3 gm/dL (11.4-16.0); Lymphocytes # (A) 1.1 k/uL (1.0-4.8); Lymphocytes % (A) 10 %; MCH 28.3 pg (25.0-35.0); MCHC 31.9 g/dL (31.0-37.0); MCV 88.8 fL (80.0-100.0); Mean Platelet Volume 7.5; Monocytes # (A) 0.4 k/uL (0-1.0); Monocytes % (A) 4 %; Neutrophils # (A) 9.1 k/uL (1.3-7.7); Neutrophils % (A) 80 %; Platelet Count 269 k/uL (150-450); RBC 5.04 m/uL (3.80-5.40); RDW 15.8 % (11.5-15.5); WBC 11.4 k/uL (3.8-10.6)
--- NOTE | 2017-10-12 21:39 | XR ---
EXAMINATION TYPE: XR chest 2V DATE OF EXAM: 10/12/2017 COMPARISON: Prior chest x-ray 11/24/2016 HISTORY: Difficulty breathing, cough TECHNIQUE: Frontal and lateral views of the chest are obtained. FINDINGS: There is no focal air space opacity, pleural effusion, or pneumothorax seen. The cardiac silhouette size is stable, rotation may accentuate the appearance. The osseous structures are intac t. Surgical clips present in the upper abdomen. IMPRESSION: Stable cardiomegaly
[2017-10-12 21:54] LABS: D-Dimer 0.31 mg/L FEU (<0.60); INR 2.2 (<1.2); Partial Thromboplastin Time 32.3 sec (22.0-30.0); Prothrombin Time 19.5 sec (9.0-12.0)
[2017-10-12 21:56] LABS: Creatine Kinase 52 U/L (30-135)
[2017-10-12 21:58] LABS: Albumin 4.1 g/dL (3.5-5.0); Calcium 9.1 mg/dL (8.4-10.2); Potassium 4.7 mmol/L (3.5-5.1); Total Bilirubin 0.7 mg/dL (0.2-1.3); Total Protein 6.7 g/dL (6.3-8.2)
[2017-10-12 22:08] LABS: Creatine Kinase MB 0.4 ng/mL (0.0-2.4); Troponin I <0.012 ng/mL (0.000-0.034)
[2017-10-12] MEDS ORDERED: AZITHROMYCIN 500 MG TAB PO STA (22:18)
[2017-10-12 22:28] VITALS: BP 150/67; PULSE 91; RESP 16; TEMP 97.9
== END 2017-10-12 22:35 | disposition home or self-care (01) ==
LOC: EC 20:42
DX: J20.9 Acute bronchitis, unspecified (principal); I50.9 Heart failure, unspecified; I25.2 Old myocardial infarction; Z88.0 Allergy status to penicillin; Z88.8 Allergy status to other drugs, medicaments and biological substances; Z79.01 Long term (current) use of anticoagulants; Z79.899 Other long term (current) drug therapy
CPT/HCPCS: 36415; 71046; 80053; 82550; 82553; 83735; 83880; 84484; 85025; 85379; 85610; 85730; 94640; 96360; 99285

== ENCOUNTER → 2018-01-10 | Outpatient (CLI) | payer MEDICARE, BC ==
[2018-01-10 12:00] LABS: Potassium 3.4 mmol/L (3.5-5.1)
== END | disposition home or self-care (01) ==
LOC: LABWHC1 10:57
PROVIDERS: ATTEND Internal Medicine Interventional Cardiology
DX: I10 Essential (primary) hypertension (principal)
CPT/HCPCS: 36415; 80048

== ENCOUNTER → 2018-10-07 | Outpatient (CLI) | payer MEDICARE, BC ==
[2018-10-07 18:24] LABS: Anion Gap 11.1 mmol/L (4.00-12.00); Calcium 9.4 mg/dL (8.7-10.3); Carbon Dioxide 26.9 mmol/L (21.6-31.8); Potassium 3.7 mmol/L (3.5-5.5)
[2018-10-07 18:31] LABS: T4, Free (Free Thyroxine) 1.4 ng/dL (0.80-1.80)
== END | disposition home or self-care (01) ==
LOC: LABWHC1 11:43
PROVIDERS: ATTEND Internal Medicine
DX: E03.9 Hypothyroidism, unspecified (principal); I10 Essential (primary) hypertension
CPT/HCPCS: 36415; 80048; 84439; 84443; 85610

== ENCOUNTER 2018-10-11 12:12 | Emergency (ER) | payer MEDICARE, BC ==
--- NOTE | 2018-10-11 14:16 | ED ---
General Adult HPI - General Chief complaint: Shortness of Breath Stated complaint: Lower extremity swelling Time Seen by Provider: 10/11/18 13:34 Source: patient, RN notes reviewed, old records reviewed Mode of arrival: ambulatory Limitations: no limitations - History of Present Illness Initial comments: 88-year-old female presented for evaluation of dyspnea and lower extremity edema. Patient has history of congestive heart failure. 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 She reports increased dyspnea. She does report mild cough which is nonproductive. No fever or chills. No central chest pain. She is currently on Coumadin. No recent change in medications. She does report lower extremity edema. She has been sleeping in a chair for the past 10 years secondary to congestive heart failure. - Related Data Home Medications Medication Instructions Recorded Confirmed Ranitidine HCl [Zantac] 150 mg PO BID 11/16/16 10/11/18 Warfarin [Coumadin] 3 mg PO DAILY 11/16/16 10/11/18 Potassium Chloride ER [K-Dur 10] 10 meq PO HS 10/12/17 10/11/18 Budesonide [Pulmicort] 1 mg INHALATION RT-BID 10/11/18 10/11/18 Bumetanide [Bumex] 1 mg PO Q48H 10/11/18 10/11/18 Diazepam 10 mg PO HS PRN 10/11/18 10/11/18 Hydrochlorothiazide 12.5 mg PO DAILY 10/11/18 10/11/18 Ipratropium-Albuterol Nebulize 3 ml INHALATION RT-QID PRN 10/11/18 10/11/18 [Duoneb 0.5 mg-3 mg/3 ml Soln] Levothyroxine Sodium [Synthroid] 150 mcg PO DAILY 10/11/18 10/11/18 Lisinopril [Zestril] 2.5 mg PO DAILY 10/11/18 10/11/18 Allergies Allergy/AdvReac Type Severity Reaction Status Date / Time nitroglycerin AdvReac Unknown Verified 10/11/18 13:56 [From Nitrostat] Penicillins AdvReac Nausea & Verified 10/11/18 13:56 Vomiting Review of Systems ROS Statement: Those systems with pertinent positive or pertinent negative responses have been documented in the HPI. ROS Other: All systems not noted in ROS Statement are negative. Past Medical History Past Medical History: Heart Failure, Thyroid Disorder Additional Past Medical History / Comment(s): blood clot filter Last Myocardial Infarction Date:: 1981 History of Any Multi-Drug Resistant Organisms: None Reported Past Surgical History: Appendectomy, Cholecystectomy, Hysterectomy Additional Past Surgical History / Comment(s): carpal tunnel Past Anesthesia/Blood Transfusion Reactions: Postoperative Nausea & Vomiting (PONV) Past Psychological History: No Psychological Hx Reported Smoking Status: Never smoker Past Alcohol Use History: None Reported Past Drug Use History: None Reported - Past Family History Father Family Medical History: Cancer Additional Family Medical History / Comment(s): esophagus and lung CA Sister(s) Additional Family Medical History / Comment(s): sister had stent placement Mother Family Medical History: Cancer Additional Family Medical History / Comment(s): Bowel and liver CA General Exam Limitations: no limitations General appearance: alert, in no apparent distress Head exam: Present: atraumatic, normocephalic Eye exam: Present: normal appearance, PERRL ENT exam: Present: normal exam Neck exam: Present: normal inspection. Absent: tenderness, meningismus Respiratory exam: Present: respiratory distress, rales Cardiovascular Exam: Present: regular rate, normal rhythm GI/Abdominal exam: Present: soft. Absent: distended, tenderness, guarding Extremities exam: Present: normal capillary refill, pedal edema Neurological exam: Present: alert, oriented X3, CN II-XII intact. Absent: motor sensory deficit Psychiatric exam: Present: normal affect, normal mood Skin exam: Present: warm, dry, intact. Absent: cyanosis Course Vital Signs 10/11/18 12:57 Temperature 98.1 F Pulse Rate 64 Respiratory 18 Rate Blood Pressure 123/84 O2 Sat by Pulse 96 Oximetry EKG Findings - EKG Comments: EKG Findings:: EKG: Sinus bradycardia, left axis deviation, incomplete left bundle branch block, rate of 58, PA interval 158, QRS duration 114, QTC 429, no ST segment elevation, history of left bundle-branch block. Medical Decision Making - Medical Decision Making 88-year-old female with history suggestive of heart failure. Chest x-ray negative for brittany pulmonary edema, no focal pneumonia. Patient has normal CBC, normal CMP, INR is therapeutic at 2.8 per troponin and BNP are negative. Patient states she had an echo within the past 5 or 6 months. She states this was unchanged from baseline. She is offered observation for symptomatically treatment, IV diuresis. She declines. She prefers outpatient follow-up. She will follow with her tire regrooving machine operator. She is given 1 dose of IV Lasix in the emergency prompt. - Lab Data Result diagrams: 10/11/18 14:02 10/11/18 14:02 Lab Results 10/11/18 10/11/18 10/11/18 Range/Units 14:02 14:02 14:02 WBC 9.0 (3.8-10.6) k/uL RBC 4.99 (3.80-5.40) m/uL Hgb 14.2 (11.4-16.0) gm/dL Hct 43.3 (34.0-46.0) % MCV 86.8 (80.0-100.0) fL MCH 28.5 (25.0-35.0) pg MCHC 32.9 (31.0-37.0) g/dL RDW 16.0 H (11.5-15.5) % Plt Count 227 (150-450) k/uL Neutrophils % 71 % Lymphocytes % 17 % Monocytes % 5 % Eosinophils % 5 % Basophils % 1 % Neutrophils # 6.4 (1.3-7.7) k/uL Lymphocytes # 1.5 (1.0-4.8) k/uL Monocytes # 0.5 (0-1.0) k/uL Eosinophils # 0.4 (0-0.7) k/uL Basophils # 0.1 (0-0.2) k/uL PT (9.0-12.0) sec INR (<1.2) APTT (22.0-30.0) sec Sodium 140 (137-145) mmol/L Potassium 4.1 (3.5-5.1) mmol/L Chloride 103 (98-107) mmol/L Carbon Dioxide 28 (22-30) mmol/L Anion Gap 9 mmol/L BUN 22 H (7-17) mg/dL Creatinine 0.95 (0.52-1.04) mg/dL Est GFR (CKD-EPI)AfAm 62 (>60 ml/min/1.73 sqM) Est GFR (CKD-EPI)NonAf 54 (>60 ml/min/1.73 sqM) Glucose 113 H (74-99) mg/dL Calcium 9.4 (8.4-10.2) mg/dL Magnesium 2.0 (1.6-2.3) mg/dL Total Bilirubin 0.7 (0.2-1.3) mg/dL AST 25 (14-36) U/L ALT 13 (9-52) U/L Alkaline Phosphatase 83 (38-126) U/L Troponin I (0.000-0.034) ng/mL NT-Pro-B Natriuret Pep 58 pg/mL Total Protein 7.0 (6.3-8.2) g/dL Albumin 4.3 (3.5-5.0) g/dL 10/11/18 10/11/18 Range/Units 14:02 14:02 WBC (3.8-10.6) k/uL RBC (3.80-5.40) m/uL Hgb (11.4-16.0) gm/dL Hct (34.0-46.0) % MCV (80.0-100.0) fL MCH (25.0-35.0) pg MCHC (31.0-37.0) g/dL RDW (11.5-15.5) % Plt Count (150-450) k/uL Neutrophils % % Lymphocytes % % Monocytes % % Eosinophils % % Basophils % % Neutrophils # (1.3-7.7) k/uL Lymphocytes # (1.0-4.8) k/uL Monocytes # (0-1.0) k/uL Eosinophils # (0-0.7) k/uL Basophils # (0-0.2) k/uL PT 27.0 H (9.0-12.0) sec INR 2.8 H (<1.2) APTT 42.5 H (22.0-30.0) sec Sodium (137-145) mmol/L Potassium (3.5-5.1) mmol/L Chloride (98-107) mmol/L Carbon Dioxide (22-30) mmol/L Anion Gap mmol/L BUN (7-17) mg/dL Creatinine (0.52-1.04) mg/dL Est GFR (CKD-EPI)AfAm (>60 ml/min/1.73 sqM) Est GFR (CKD-EPI)NonAf (>60 ml/min/1.73 sqM) Glucose (74-99) mg/dL Calcium (8.4-10.2) mg/dL Magnesium (1.6-2.3) mg/dL Total Bilirubin (0.2-1.3) mg/dL AST (14-36) U/L ALT (9-52) U/L Alkaline Phosphatase (38-126) U/L Troponin I <0.012 (0.000-0.034) ng/mL NT-Pro-B Natriuret Pep pg/mL Total Protein (6.3-8.2) g/dL Albumin (3.5-5.0) g/dL Disposition Clinical Impression: Congestive heart failure Disposition: HOME SELF-CARE Condition: Good Instructions (If sedation given, give patient instructions): Heart Failure (ER) Is patient prescribed a controlled substance at d/c from ED?: No Referrals: Rj Vo MD [Primary Care Provider] - 1-2 days Madelyn Whitten MD [STAFF PHYSICIAN] - 1-2 days Time of Disposition: 15:58
[2018-10-11 14:27] LABS: Albumin 4.3 g/dL (3.5-5.0); Calcium 9.4 mg/dL (8.4-10.2); Potassium 4.1 mmol/L (3.5-5.1); Total Bilirubin 0.7 mg/dL (0.2-1.3)
[2018-10-11 14:30] LABS: INR 2.8 (<1.2)
[2018-10-11 14:31] LABS: Partial Thromboplastin Time 42.5 sec (22.0-30.0)
[2018-10-11 14:57] LABS: Basophils # (A) 0.1 k/uL (0-0.2); Basophils % (A) 1 %; Eosinophils # (A) 0.4 k/uL (0-0.7); Eosinophils % (A) 5 %; HCT 43.3 % (34.0-46.0); HGB 14.2 gm/dL (11.4-16.0); Lymphocytes # (A) 1.5 k/uL (1.0-4.8); Lymphocytes % (A) 17 %; MCH 28.5 pg (25.0-35.0); MCHC 32.9 g/dL (31.0-37.0); MCV 86.8 fL (80.0-100.0); Mean Platelet Volume 7.7; Monocytes # (A) 0.5 k/uL (0-1.0); Monocytes % (A) 5 %; Neutrophils # (A) 6.4 k/uL (1.3-7.7); Neutrophils % (A) 71 %; Platelet Count 227 k/uL (150-450); RBC 4.99 m/uL (3.80-5.40)
--- NOTE | 2018-10-11 15:32 | XR ---
EXAMINATION TYPE: XR chest 2V DATE OF EXAM: 10/11/2018 COMPARISON: 10/12/2017 HISTORY: Cough and dyspnea TECHNIQUE: Frontal and lateral views of the chest are obtained. FINDINGS: Copious soft tissues partially obscure the lower lungs on the frontal view. There is no fo nasim air space opacity, pleural effusion, or pneumothorax seen. The cardiac silhouette size is mildly enlarged. The osseous structures are intact. Mild to moderate multilevel degenerative changes of t he thoracic spine are noted. IMPRESSION: No acute cardiopulmonary process.
[2018-10-11] MEDS ORDERED: FUROSEMIDE 10 MG/ML 4 ML VIAL IV STA (15:41)
[2018-10-11 16:48] VITALS: BP 114/57; PULSE 71; RESP 18; TEMP 97.2
== END 2018-10-11 16:47 | disposition home or self-care (01) ==
LOC: EC 12:12
DX: I50.9 Heart failure, unspecified (principal); E07.9 Disorder of thyroid, unspecified; I25.2 Old myocardial infarction; Z79.01 Long term (current) use of anticoagulants; Z79.51 Long term (current) use of inhaled steroids; Z79.899 Other long term (current) drug therapy; Z88.0 Allergy status to penicillin; Z88.8 Allergy status to other drugs, medicaments and biological substances
CPT/HCPCS: 36415; 93005; 83880; 80053; 83735; 84484; 85025; 85610; 85730; 71046; 99285; 96374; J1940

== ENCOUNTER → 2019-03-01 | Outpatient (CLI) | payer MEDICARE, BC | END | disposition home or self-care (01) | LOC: CPPFTMAIN 12:57 | PROVIDERS: ATTEND Internal Medicine | DX: R06.02 Shortness of breath (principal) | CPT/HCPCS: 94060; 94726; 94729 ==

== ENCOUNTER → 2019-03-06 | Outpatient (CLI) | payer MEDICARE, BC ==
[2019-03-06 16:22] LABS: African American GFR (CKD) 38.8 (60.0-200.0); Anion Gap 16.7 mmol/L (4.00-12.00); BUN/Creat Ratio 26.43 Ratio (12.00-20.00); Calcium 9.3 mg/dL (8.7-10.3); Carbon Dioxide 27.3 mmol/L (21.6-31.8); Non-African American GFR(CKD) 33.5 (60.0-200.0); Potassium 3.3 mmol/L (3.5-5.5)
[2019-03-06 16:30] LABS: T4, Free (Free Thyroxine) 1.2 ng/dL (0.80-1.80)
== END ==
LOC: LABWHC1 10:56
PROVIDERS: ATTEND Internal Medicine
DX: E03.9 Hypothyroidism, unspecified (principal); I10 Essential (primary) hypertension
CPT/HCPCS: 36415; 80048; 84439; 84443

== ENCOUNTER → 2020-01-29 | Outpatient (CLI) | payer MEDICARE, BC ==
[2020-01-30 02:05] LABS: African American GFR (CKD) 42.1 (60.0-200.0); Albumin 4.4 g/dL (3.80-4.90); Anion Gap 14.5 mmol/L (4.00-12.00); Calcium 9.4 mg/dL (8.7-10.3); Carbon Dioxide 25.5 mmol/L (21.6-31.8); Globulin 2.2 g/dL (1.6-3.3); Non-African American GFR(CKD) 36.3 (60.0-200.0); Potassium 3.4 mmol/L (3.5-5.5); Total Bilirubin 0.3 mg/dL (0.3-1.2); Total Protein 6.6 g/dL (6.2-8.2)
== END | disposition home or self-care (01) ==
LOC: LABWHC1 14:23
PROVIDERS: ATTEND Obstetrics & Gynecology Female Pelvic Medicine and Reconstructive Surgery
DX: E87.6 Hypokalemia (principal); K21.9 Gastro-esophageal reflux disease without esophagitis
CPT/HCPCS: 36415; 80053